=== PATIENT | female | born 1985 | race Caucasian/White ===

== ENCOUNTER → 2017-04-02 | Outpatient (CLI) | payer OTHER ==
--- NOTE | 2017-04-05 16:19 | BMR ---
EXAMINATION TYPE: MR breast BILAT wo/w con DATE OF EXAM: 04/02/2017 COMPARISON: NONE HISTORY: Family hx breast ca, mother TECHNIQUE: A series of fat and water weighted images in the long and short axis views of both breasts are obtained in conjunction with dynamic contrast MRI with subtraction technique. The patient was i njected with 7 mL intravenous Gadavist gadolinium contrast. Three-dimensional and additional postpr ocessing imaging is created on independent workstation and reviewed during official interpretation of this study. COMPARISON: No prior examinations. FINDINGS: There is minimal symmetric background parenchymal enhancement in breasts that are composed of heterog enous fibroglandular tissue. No suspicious areas of mass or nonmass enhancement are seen. No internal mammary, intramammary, or ax illary lymphadenopathy is appreciated. IMPRESSION: BI-RADS 1 - No MR evidence of malignancy. Annual high-risk screening MRI could be performed in this p atient with a family history of breast cancer. Additionally mammography is recommended beginning at t he age of 40 or sooner if clinically indicated.
== END | disposition home or self-care (01) ==
LOC: RADMRIMAIN 07:06
PROVIDERS: ATTEND Family Medicine
DX: Z09 Encounter for follow-up examination after completed treatment for conditions other than malignant neoplasm (principal); Z80.3 Family history of malignant neoplasm of breast
CPT/HCPCS: 0159T; C8908; A9581; 77059

== ENCOUNTER → 2017-05-07 | Outpatient (CLI) | payer OTHER ==
--- NOTE | 2017-05-10 09:08 | MM ---
Reason for exam: screening (asymptomatic). Baseline mammogram. History: Family history of breast cancer in mother at age 53. Physical Findings: Nurse Summary: Nodule in the left breast at 3 o'clock at nipple (nurse kp). MG Screening Mammo w CAD Bilateral CC and MLO view(s) were taken. There are scattered fibroglandular densities. Some nodular asymmetry is present laterally at a middle depth in the left breast, likely nodular breast tissue. Otherwise, no discrete abnormalities seen. Palpable marker is present along the lower outer quadrant periareolar region. These results were verbally communicated with the patient and result sheet given to the patient on 05/07/17. ASSESSMENT: Incomplete: need additional imaging evaluation, BI-RAD 0 RECOMMENDATION: Ultrasound of the left breast. (12-6 o'clock)including palpable.
--- NOTE | 2017-05-10 09:14 | USB ---
Reason for exam: clinical finding. History: Family history of breast cancer in mother at age 53. US Breast Workup Limited LT Left Breast ultrasound demonstrates no cystic or solid lesion seen. Nothing seen at BB. 12-6 o'clock was scanned. These results were verbally communicated with the patient and result sheet given to the patient on 05/07/17. ASSESSMENT: Negative, BI-RAD 1 RECOMMENDATION: Routine screening mammogram of both breasts at age 39. (Unless clinical indication to start sooner). Manage patient on a clinical basis. (Any suspicious palpable abnormalities).
== END | disposition home or self-care (01) ==
LOC: RADMAMWWP 14:46
PROVIDERS: ATTEND Family Medicine
DX: R92.8 Other abnormal and inconclusive findings on diagnostic imaging of breast (principal); Z80.3 Family history of malignant neoplasm of breast
CPT/HCPCS: 76642; G0202

== ENCOUNTER 2017-10-11 18:47 | Emergency (ER) | payer OTHER ==
[2017-10-11 18:55] VITALS: BP 132/93; PULSE 114; RESP 18; TEMP 98.1
--- NOTE | 2017-10-11 19:44 | ED ---
General Adult HPI - General Chief complaint: Extremity Problem,Nontraumatic Stated complaint: left leg swelling Time Seen by Provider: 10/11/17 19:14 Source: patient, RN notes reviewed Mode of arrival: ambulatory Limitations: no limitations - History of Present Illness Initial comments: Patient 32-year-old female presented to the emergency room today with a chief complaint of increased pain and redness to the left lower extremity. She doesn' t that she has chronic swelling to the lower extremity. She states that she's noticed increased redness and pain just over the last few days. Patient states redness was swallows or has increased today up the anterior irwin. She denies any injury or trauma. Denies any other complaints or symptoms. Patient denies any recent fever, chills, shortness of breath, chest pain, back pain, abdominal pain, nausea or vomiting, numbness or tingling, headaches or visual changes, or any other complaints. - Related Data Home Medications Medication Instructions Recorded Confirmed Albuterol Inhaler [Ventolin 2 puff INHALATION RT-Q6H PRN 02/12/15 10/11/17 Inhaler] Desvenlafaxine Succinate [Pristiq 50 mg PO HS PRN 10/11/17 10/11/17 ER] SUMAtriptan SUCCINATE [Imitrex] 50 mg PO DAILY PRN 10/11/17 10/11/17 Previous Rx's Medication Instructions Recorded Cephalexin [Keflex] 500 mg PO Q12HR 10 Days cap 10/11/17 Allergies Allergy/AdvReac Type Severity Reaction Status Date / Time Penicillins Allergy Swelling Verified 10/11/17 19:32 Review of Systems ROS Statement: Those systems with pertinent positive or pertinent negative responses have been documented in the HPI. ROS Other: All systems not noted in ROS Statement are negative. Past Medical History Past Medical History: Asthma, Neurologic Disorder History of Any Multi-Drug Resistant Organisms: None Reported Past Surgical History: No Surgical Hx Reported Past Psychological History: Anxiety Smoking Status: Current every day smoker Past Alcohol Use History: Rare Past Drug Use History: None Reported General Exam - General Exam Comments Initial Comments: General: The patient is awake and alert, in no distress, and does not appear acutely ill. Neck: The neck is supple, there is no tenderness or JVD. Cardiovascular: There is a regular rate and rhythm. No murmur, rub or gallop is appreciated. Respiratory: Lungs are clear to auscultation, respirations are non-labored, breath sounds are equal. No wheezes, stridor, rales, or rhonchi. Musculoskeletal/skin: Patient does have mild swelling to left lower extremity when compared to the right. There is redness erythema going up the anterior left irwin approximately [address] There is tenderness on exam to the anterior aspect also to the posterior aspect on palpation. Her sensations are intact. Pulses 2+. Strength 5/5. Neurological: A&O x 3. CN II-XII intact, There are no obvious motor or sensory deficits. Coordination appears grossly intact. Speech is normal.. Psychiatric: Normal mood and affect. Limitations: no limitations Course Vital Signs 10/11/17 18:52 Temperature 98.1 F Pulse Rate 114 H Respiratory 18 Rate Blood Pressure 132/93 O2 Sat by Pulse 97 Oximetry Medical Decision Making - Medical Decision Making Patient's ultrasound negative for any evidence of DVT. Results were discussed with the patient. She'll be treated for cellulitis infection and started on antibiotics. Advised follow-up over the next 2 days to have area rechecked return here to emergency room if symptoms increase or worsen or for new concerns. Disposition Clinical Impression: Cellulitis Disposition: HOME SELF-CARE Condition: Good Instructions: Cellulitis (ED) Additional Instructions: Please use antibiotic as prescribed follow-up the family doctor have area rechecked over the next 2 days. Please return to emergency room if symptoms increase or worsen appropriate concerns as discussed. Prescriptions: Cephalexin [Keflex] 500 mg PO Q12HR 10 Days cap Is patient prescribed a controlled substance at d/c from ED?: No Referrals: Lon Torres DO [Primary Care Provider] - 1-2 days Time of Disposition: 20:53
--- NOTE | 2017-10-11 20:37 | US ---
EXAMINATION TYPE: US venous doppler duplex LE LT DATE OF EXAM: 10/11/2017 7:49 PM COMPARISON: NONE CLINICAL HISTORY: Pain. Left leg pain SIDE PERFORMED: Left TECHNIQUE: The lower extremity deep venous system is examined utilizing real time linear array sonog flo with graded compression, doppler sonography and color-flow sonography. VESSELS IMAGED: External Iliac Vein (EIV) Common Femoral Vein Deep Femoral Vein Greater Saphenous Vein * Femoral Vein Popliteal Vein Small Saphenous Vein * Proximal Calf Veins (* superficial vessels) Left Leg: Negative for DVT Grayscale, color doppler, spectral doppler imaging performed of the deep veins of the left lower extr emity. There is normal flow, compressibility, vascular waveforms. IMPRESSION: No ultrasound evidence for acute DVT in the left lower extremity.
[2017-10-11] MEDS ORDERED: CEPHALEXIN 500MG STARTER PACK 4 CAP BTL PO STA (20:55)
== END 2017-10-11 21:19 | disposition home or self-care (01) ==
LOC: EC 18:47
DX: L03.116 Cellulitis of left lower limb (principal); F17.200 Nicotine dependence, unspecified, uncomplicated; Z88.0 Allergy status to penicillin
CPT/HCPCS: 99283

== ENCOUNTER 2017-10-12 18:16 | Inpatient (IN) | payer OTHER ==
[2017-10-12] MEDS ORDERED: SODIUM CHLORIDE 0.9% 1,000 ML IV STA (19:15)
--- NOTE | 2017-10-12 19:46 | ED ---
General Adult HPI - General Chief complaint: Extremity Problem,Nontraumatic Stated complaint: cellulitis on leg Time Seen by Provider: 10/12/17 19:13 Source: patient, RN notes reviewed Mode of arrival: ambulatory Limitations: no limitations - History of Present Illness Initial comments: Patient 32-year-old female presented to the emergency room today with a chief complaint of infection to the left lower leg. Patient does admit that she was seen yesterday diagnosed with cellulitis. She states she was started on Vioxx. She does not that some family doctor earlier today. She states that pain is not worse there is some increased redness. Patient admits that she feels feverish. She denies any other complaints or symptoms currently. Patient denies any recent fever, chills, shortness of breath, chest pain, back pain, abdominal pain, constipation or diarrhea, headaches or visual changes, or any other complaints. - Related Data Home Medications Medication Instructions Recorded Confirmed Albuterol Inhaler [Ventolin 2 puff INHALATION RT-Q6H PRN 02/12/15 10/12/17 Inhaler] Desvenlafaxine Succinate [Pristiq 50 mg PO HS PRN 10/11/17 10/12/17 ER] SUMAtriptan SUCCINATE [Imitrex] 50 mg PO DAILY PRN 10/11/17 10/12/17 Beclomethasone Dip 80 Mcg/Puff 1 puff INHALATION RT-BID 10/12/17 10/12/17 [Qvar 80 mcg] Previous Rx's Medication Instructions Recorded Cephalexin [Keflex] 500 mg PO Q12HR 10 Days cap 10/11/17 Allergies Allergy/AdvReac Type Severity Reaction Status Date / Time Penicillins Allergy Swelling Verified 10/12/17 19:47 Review of Systems ROS Statement: Those systems with pertinent positive or pertinent negative responses have been documented in the HPI. ROS Other: All systems not noted in ROS Statement are negative. Past Medical History Past Medical History: Asthma, Neurologic Disorder History of Any Multi-Drug Resistant Organisms: None Reported Past Surgical History: No Surgical Hx Reported Past Psychological History: Anxiety Smoking Status: Current every day smoker Past Alcohol Use History: Rare Past Drug Use History: None Reported General Exam - General Exam Comments Initial Comments: General: The patient is awake and alert, in no distress, and does not appear acutely ill. Neck: The neck is supple, there is no tenderness or JVD. Cardiovascular: There is a regular rate and rhythm. No murmur, rub or gallop is appreciated. Respiratory: Lungs are clear to auscultation, respirations are non-labored, breath sounds are equal. No wheezes, stridor, rales, or rhonchi. Musculoskeletal: Patient does have redness and some swelling to the left lower extremity. Redness approximately three fourth[address] way. Pulses 2+. Strength 5 /5. Full range of motion. No Neurological: A&O x 3. CN II-XII intact, There are no obvious motor or sensory deficits. Coordination appears grossly intact. Speech is normal. Skin: Redness to the anterior aspect of left irwin approximately [address]. Psychiatric: Normal mood and affect. Limitations: no limitations Course Vital Signs 10/12/17 19:14 Temperature 98.0 F Pulse Rate 113 H Respiratory 20 Rate Blood Pressure 150/86 O2 Sat by Pulse 100 Oximetry Medical Decision Making - Medical Decision Making Patient's labs been reviewed does show 13,000 white count. Urine culture added to patient's urinalysis. Patient's her on vancomycin here the emergency room. Patient will be admitted for outpatient treatment failure of cellulitis to left lower extremity. - Lab Data Result diagrams: 10/12/17 19:44 10/12/17 19:44 Lab Results 10/12/17 10/12/17 10/12/17 Range/Units 19:32 19:32 19:44 WBC 13.8 H (3.8-10.6) k/uL RBC 4.47 (3.80-5.40) m/uL Hgb 13.6 (11.4-16.0) gm/dL Hct 40.7 (34.0-46.0) % MCV 91.0 (80.0-100.0) fL MCH 30.3 (25.0-35.0) pg MCHC 33.3 (31.0-37.0) g/dL RDW 12.3 (11.5-15.5) % Plt Count 234 (150-450) k/uL Neutrophils % 75 % Lymphocytes % 16 % Monocytes % 7 % Eosinophils % 1 % Basophils % 0 % Neutrophils # 10.4 H (1.3-7.7) k/uL Lymphocytes # 2.2 (1.0-4.8) k/uL Monocytes # 0.9 (0-1.0) k/uL Eosinophils # 0.1 (0-0.7) k/uL Basophils # 0.0 (0-0.2) k/uL Sodium (137-145) mmol/L Potassium (3.5-5.1) mmol/L Chloride (98-107) mmol/L Carbon Dioxide (22-30) mmol/L Anion Gap mmol/L BUN (7-17) mg/dL Creatinine (0.52-1.04) mg/dL Est GFR (CKD-EPI)AfAm (>60 ml/min/1.73 sqM) Est GFR (CKD-EPI)NonAf (>60 ml/min/1.73 sqM) Glucose (74-99) mg/dL Calcium (8.4-10.2) mg/dL Total Bilirubin (0.2-1.3) mg/dL AST (14-36) U/L ALT (9-52) U/L Alkaline Phosphatase (38-126) U/L Total Protein (6.3-8.2) g/dL Albumin (3.5-5.0) g/dL Urine Color Yellow Urine Appearance Cloudy H (Clear) Urine pH 7.0 (5.0-8.0) Ur Specific Chana 1.021 (1.001-1.035) Urine Protein Trace H (Negative) Urine Glucose (UA) Negative (Negative) Urine Ketones Negative (Negative) Urine Blood Negative (Negative) Urine Nitrite Negative (Negative) Urine Bilirubin Negative (Negative) Urine Urobilinogen <2.0 (<2.0) mg/dL Ur Leukocyte Esterase Moderate H (Negative) Urine WBC 26 H (0-5) /hpf Ur Squamous Epith Cells 8 H (0-4) /hpf Amorphous Sediment Few H (None) /hpf Urine HCG, Qual Not Detected (Not Detectd) 10/12/17 Range/Units 19:44 WBC (3.8-10.6) k/uL RBC (3.80-5.40) m/uL Hgb (11.4-16.0) gm/dL Hct (34.0-46.0) % MCV (80.0-100.0) fL MCH (25.0-35.0) pg MCHC (31.0-37.0) g/dL RDW (11.5-15.5) % Plt Count (150-450) k/uL Neutrophils % % Lymphocytes % % Monocytes % % Eosinophils % % Basophils % % Neutrophils # (1.3-7.7) k/uL Lymphocytes # (1.0-4.8) k/uL Monocytes # (0-1.0) k/uL Eosinophils # (0-0.7) k/uL Basophils # (0-0.2) k/uL Sodium 143 (137-145) mmol/L Potassium 5.0 (3.5-5.1) mmol/L Chloride 104 (98-107) mmol/L Carbon Dioxide 27 (22-30) mmol/L Anion Gap 12 mmol/L BUN 12 (7-17) mg/dL Creatinine 0.60 (0.52-1.04) mg/dL Est GFR (CKD-EPI)AfAm >90 (>60 ml/min/1.73 sqM) Est GFR (CKD-EPI)NonAf >90 (>60 ml/min/1.73 sqM) Glucose 115 H (74-99) mg/dL Calcium 9.8 (8.4-10.2) mg/dL Total Bilirubin 0.3 (0.2-1.3) mg/dL AST 18 (14-36) U/L ALT 18 (9-52) U/L Alkaline Phosphatase 77 (38-126) U/L Total Protein 7.1 (6.3-8.2) g/dL Albumin 4.5 (3.5-5.0) g/dL Urine Color Urine Appearance (Clear) Urine pH (5.0-8.0) Ur Specific Chana (1.001-1.035) Urine Protein (Negative) Urine Glucose (UA) (Negative) Urine Ketones (Negative) Urine Blood (Negative) Urine Nitrite (Negative) Urine Bilirubin (Negative) Urine Urobilinogen (<2.0) mg/dL Ur Leukocyte Esterase (Negative) Urine WBC (0-5) /hpf Ur Squamous Epith Cells (0-4) /hpf Amorphous Sediment (None) /hpf Urine HCG, Qual (Not Detectd) Disposition Clinical Impression: Cellulitis Disposition: ADMITTED IP TO THIS HOSP Condition: Good Is patient prescribed a controlled substance at d/c from ED?: No Referrals: Lon Torres DO [Primary Care Provider] - 1-2 days Time of Disposition: 20:17
[2017-10-12 19:51] LABS: Amorphous Sediment,Urine Few /hpf; Appearance,Urine Cloudy (Clear); Bilirubin,Urine Negative (Negative); Blood,Urine Negative (Negative); Color,Urine Yellow; Glucose,Urine (UA) Negative (Negative); Ketones,Urine Negative (Negative); Leukocyte Esterase,Urine Moderate (Negative); Nitrite,Urine Negative (Negative); Protein,Urine Trace (Negative); Specific Gravity,Urine 1.021 (1.001-1.035); Squamous Epithelial Cell,Urine 8 /hpf (0-4); Urobilinogen,Urine <2.0 mg/dL (<2.0); WBC,Urine 26 /hpf (0-5)
[2017-10-12 19:54] LABS: Basophils % (A) 0 %; Eosinophils # (A) 0.1 k/uL (0-0.7); Eosinophils % (A) 1 %; HCT 40.7 % (34.0-46.0); HGB 13.6 gm/dL (11.4-16.0); Lymphocytes # (A) 2.2 k/uL (1.0-4.8); Lymphocytes % (A) 16 %; MCH 30.3 pg (25.0-35.0); MCHC 33.3 g/dL (31.0-37.0); Mean Platelet Volume 7.4; Monocytes # (A) 0.9 k/uL (0-1.0); Monocytes % (A) 7 %; Neutrophils # (A) 10.4 k/uL (1.3-7.7); Neutrophils % (A) 75 %; Platelet Count 234 k/uL (150-450); RBC 4.47 m/uL (3.80-5.40); RDW 12.3 % (11.5-15.5); WBC 13.8 k/uL (3.8-10.6)
[2017-10-12] MEDS ORDERED: MORPHINE SULFATE 4 MG/ML SYRINGE IVP STA (19:55)
[2017-10-12] MEDS ORDERED: VANCOMYCIN IV PER PHARMACY 1 EACH MISC MISCELLANE PRN (19:55)
[2017-10-12] MEDS ORDERED: VANCOMYCIN 1,250 MG in SODIUM CHLORIDE 0.9% 250 ML IVPB STA (19:59)
[2017-10-12 20:04] LABS: ALT 18 U/L (9-52); AST 18 U/L (14-36); Albumin 4.5 g/dL (3.5-5.0); Alkaline Phosphatase 77 U/L (38-126); Anion Gap 12 mmol/L; Blood Urea Nitrogen 12 mg/dL (7-17); Calcium 9.8 mg/dL (8.4-10.2); Carbon Dioxide 27 mmol/L (22-30); Chloride 104 mmol/L (98-107); Glucose 115 mg/dL (74-99); Sodium 143 mmol/L (137-145); Total Bilirubin 0.3 mg/dL (0.2-1.3); Total Protein 7.1 g/dL (6.3-8.2)
[2017-10-12] MEDS ORDERED: NALOXONE 0.4 MG/ML 1 ML VIAL IV PRN (20:17)
[2017-10-12] MEDS ORDERED: IBUPROFEN 600 MG TAB PO PRN (20:17)
[2017-10-12] MEDS ORDERED: MORPHINE SULFATE 4 MG/ML SYRINGE IV PRN (20:17)
[2017-10-12] MEDS ORDERED: ACETAMINOPHEN TAB 325 MG TAB PO PRN (20:17)
[2017-10-12] MEDS ORDERED: ONDANSETRON 4 MG/2 ML VIAL IVP PRN (20:17)
[2017-10-12] MEDS ORDERED: diphenhydrAMINE 50 MG/ML 1 ML VIAL IVP STA (20:42)
[2017-10-12] MEDS: KETOROLAC 30 MG/ML 1 ML VIAL IVP PRN (21:26)
[2017-10-12 21:43] VITALS: BMI 25.0
[2017-10-12] MEDS ORDERED: SUMAtriptan SUCCINATE 50 MG TAB PO PRN (22:44)
[2017-10-12] MEDS: diphenhydrAMINE 25 MG CAP PO PRN (22:49)
[2017-10-12] MEDS: SODIUM CHLORIDE 0.9% 1,000 ML IV STA (22:50)
[2017-10-13] MEDS: diphenhydrAMINE 25 MG CAP PO PRN ×3 (03:31→23:55)
[2017-10-13] MEDS ORDERED: VANCOMYCIN 1,250 MG in SODIUM CHLORIDE 0.9% 250 ML IVPB SCH (04:00)
[2017-10-13] MEDS: KETOROLAC 30 MG/ML 1 ML VIAL IVP PRN ×3 (06:02→21:38)
[2017-10-13 07:16] LABS: Basophils % (A) 0 %; Eosinophils # (A) 0.2 k/uL (0-0.7); Eosinophils % (A) 1 %; HCT 37.2 % (34.0-46.0); HGB 12.2 gm/dL (11.4-16.0); Lymphocytes # (A) 2.2 k/uL (1.0-4.8); Lymphocytes % (A) 20 %; MCH 30.5 pg (25.0-35.0); MCHC 32.8 g/dL (31.0-37.0); Mean Platelet Volume 7.5; Monocytes # (A) 0.6 k/uL (0-1.0); Monocytes % (A) 6 %; Neutrophils % (A) 72 %; Platelet Count 198 k/uL (150-450); RDW 12.3 % (11.5-15.5); WBC 11.1 k/uL (3.8-10.6)
[2017-10-13 07:47] LABS: ALT 18 U/L (9-52); AST 15 U/L (14-36); Albumin 3.4 g/dL (3.5-5.0); Alkaline Phosphatase 73 U/L (38-126); Anion Gap 9 mmol/L; Blood Urea Nitrogen 10 mg/dL (7-17); Calcium 8.6 mg/dL (8.4-10.2); Carbon Dioxide 25 mmol/L (22-30); Chloride 106 mmol/L (98-107); Glucose 113 mg/dL (74-99); Potassium 4.4 mmol/L (3.5-5.1); Sodium 140 mmol/L (137-145); Total Bilirubin 0.4 mg/dL (0.2-1.3); Total Protein 5.6 g/dL (6.3-8.2)
[2017-10-13] MEDS: BUDESONIDE 0.5 MG/2 ML NEBU INHALATION SCH ×2 (07:55→19:15)
[2017-10-13] MEDS: ceFAZolin 1,000 MG in DEXTROSE/WATER 1 50ML.BAG IVPB SCH ×3 (07:56→23:51)
[2017-10-13] MEDS ORDERED: MORPHINE ORAL SOLN 10 MG/5 ML CUP PO PRN (08:22)
[2017-10-13] MEDS: SODIUM CHLORIDE 0.9% 1,000 ML IV STA ×2 (09:26→21:40)
[2017-10-13] MEDS: ALBUTEROL NEBULIZED 2.5 MG/3 ML INHALATION PRN ×2 (13:47→19:15)
[2017-10-13] MEDS: DESVENLAFAXINE SUCCINATE 50 MG TAB.ER.24H PO PRN (21:41)
--- NOTE | 2017-10-13 23:17 | P.HPIM ---
History of Present Illness H&P Date: 10/13/17 Chief Complaint: Left lower activity redness and swelling Patient patient is a 32-year-old female with a known history of asthma presented to the emergency room today with a chief complaint of infection to the left lower leg. Patient does admit that she was seen yesterday diagnosed with cellulitis. She states she was started on Vioxx. She does not that some family doctor earlier today. She states that pain is not worse there is some increased redness. Patient admits that she feels feverish. She denies any other complaints or symptoms currently. Patient denies any recent fever, chills , shortness of breath, chest pain, back pain, abdominal pain, constipation or diarrhea, headaches or visual changes, or any other complaints. Patient does have previous history of left lower extremity cellulitis. Does have a history of eczema of the feet and was following dermatologists in the past. Patient was initially started on vancomycin and patient developed headache and feeling of flushing of the face. Vancomycin has been discontinued and patient was started on Keflex IV. No history of MRSA in the past. Patient was also found have acute urinary tract infection. Review of Systems Constitutional: Patient denies any fever or chills . No generalized weakness or weight loss. Abdomen: Patient denied nausea vomiting and diarrhea and abdominal pain. Cardiovascular: Patient denies any chest pain or short of breath no palpitations. Respiratory: patient denied any cough is from production. No shortness of breath Neurologic: Patient denied any numbness or tingling headache. Musculoskeletal: Left lower activity redness and swelling. Patient denies any complaints of joint swelling or deformity. Skin: Negative Psychiatric: Negative Endocrine: No heat or cold intolerance. No recent weight gain. Genitourinary: No dysuria or hematuria. All other 14 point ROS negative except the above Past Medical History Past Medical History: Asthma, Neurologic Disorder Additional Past Medical History / Comment(s): pt states she has " white matter on the brain and white stuff on spinal cord possible ms." History of Any Multi-Drug Resistant Organisms: None Reported Past Surgical History: No Surgical Hx Reported Past Psychological History: Anxiety Smoking Status: Current every day smoker Past Alcohol Use History: Rare Past Drug Use History: None Reported - Past Family History Mother Family Medical History: Cancer Additional Family Medical History / Comment(s): breast cancer Father History Unknown: Yes Family Medical History: Coronary Artery Disease (CAD), Hypertension Medications and Allergies Home Medications Medication Instructions Recorded Confirmed Type Albuterol Inhaler [Ventolin 2 puff INHALATION RT-Q6H PRN 02/12/15 10/12/17 History Inhaler] Cephalexin [Keflex] 500 mg PO Q12HR 10 Days cap 10/11/17 10/12/17 Rx Desvenlafaxine Succinate [Pristiq 50 mg PO HS PRN 10/11/17 10/12/17 History ER] SUMAtriptan SUCCINATE [Imitrex] 50 mg PO DAILY PRN 10/11/17 10/12/17 History Beclomethasone Dip 80 Mcg/Puff 1 puff INHALATION RT-BID 10/12/17 10/12/17 History [Qvar 80 mcg] Allergies Allergy/AdvReac Type Severity Reaction Status Date / Time Penicillins Allergy Swelling Verified 10/12/17 19:47 vancomycin AdvReac Itching Verified 10/13/17 08:14 Physical Exam Vitals: Vital Signs Temp Pulse Pulse Resp BP BP Pulse Ox 10/13/17 08:08 97.9 F 75 16 94/57 95 10/13/17 00:20 98.2 F 81 18 115/75 100 10/12/17 21:22 98.3 F 86 18 135/72 100 10/12/17 21:05 98.7 F 86 18 115/78 99 10/12/17 20:19 91 18 124/75 100 10/12/17 19:14 98.0 F 113 H 20 150/86 100 Intake and Output 10/12/17 10/13/17 10/13/17 22:59 06:59 14:59 Intake Total 600 Balance 600 Intake: Oral 600 Other: Voiding Method Toilet # Voids 1 1 Weight 72.575 kg PHYSICAL EXAMINATION: Patient is lying in the bed comfortably, no acute distress, awake alert and oriented.. HEENT: Normocephalic. Neck is supple. Pupils reactive. Nostrils clear. Oral cavity is moist. Ears reveal no drainage. Neck reveals no JVD, carotid bruits, or thyromegaly. CHEST EXAMINATION: Trachea is central. Symmetrical expansion. Lung morris clear to auscultation and percussion. CARDIAC: Normal S1, S2 with no gallops. No murmurs ABDOMEN: Soft. Bowel sounds normal. No organomegaly. No abdominal bruits. Extremities: Left lower activity swelling up to below knee and redness and tenderness. No clubbing or cyanosis Neurologically awake, alert, oriented x3 with well-coordinated movements. No focal deficits noted Skin: No rash or skin lesions. Psychiatric: Coperative. Nonsuicidal Musculoskeletal: No joint swelling or deformity. Normal range of motion. Results CBC & Chem 7: 10/13/17 06:56 10/13/17 06:56 Labs: Abnormal Lab Results - Last 24 Hours (Table) 10/12/17 10/12/17 10/12/17 Range/Units 19:32 19:44 19:44 WBC 13.8 H (3.8-10.6) k/uL Neutrophils # 10.4 H (1.3-7.7) k/uL Glucose 115 H (74-99) mg/dL Total Protein (6.3-8.2) g/dL Albumin (3.5-5.0) g/dL Urine Appearance Cloudy H (Clear) Urine Protein Trace H (Negative) Ur Leukocyte Esterase Moderate H (Negative) Urine WBC 26 H (0-5) /hpf Ur Squamous Epith Cells 8 H (0-4) /hpf Amorphous Sediment Few H (None) /hpf 10/13/17 10/13/17 Range/Units 06:56 06:56 WBC 11.1 H (3.8-10.6) k/uL Neutrophils # 8.0 H (1.3-7.7) k/uL Glucose 113 H (74-99) mg/dL Total Protein 5.6 L (6.3-8.2) g/dL Albumin 3.4 L (3.5-5.0) g/dL Urine Appearance (Clear) Urine Protein (Negative) Ur Leukocyte Esterase (Negative) Urine WBC (0-5) /hpf Ur Squamous Epith Cells (0-4) /hpf Amorphous Sediment (None) /hpf Microbiology - Last 24 Hours (Table) 10/12/17 20:20 Urine Culture - Preliminary Urine,Voided Thrombosis Risk Factor Assmnt - DVT/VTE Prophylaxis DVT/VTE Prophylaxis: Pharmacologic Prophylaxis ordered - Choose All That Apply Each Factor Represents 1 point: Obesity (BMI >25) Other Risk Factors: No Other congenital or acquired thrombophilia - If yes, enter type in comment: No Thrombosis Risk Factor Assessment Total Risk Factor Score: 1 Thrombosis Risk Factor Assessment Level: Low Risk Assessment and Plan Assessment: Sepsis secondary to left lower extremity cellulitis Acute urinary tract infection Eczema of bilateral feet. Asthma stable DVT prophylaxis Plan: Patient will be continued on Keflex IV. Vancomycin has been discontinued due to side effects. Follow up blood cultures and urine culture and further recommendations based on the clinical course. We will continue the home medications and breathing treatments. Pain management. Time with Patient: Greater than 30
[2017-10-14] MEDS: HEPARIN SODIUM,PORCINE 5,000 UNIT/ML 1 ML VIAL SQ SCH ×3 (02:32→17:36)
[2017-10-14] MEDS: KETOROLAC 30 MG/ML 1 ML VIAL IVP PRN ×3 (05:28→20:29)
[2017-10-14] MEDS: ALBUTEROL NEBULIZED 2.5 MG/3 ML INHALATION PRN ×2 (05:30→23:16)
[2017-10-14] MEDS: ceFAZolin 1,000 MG in DEXTROSE/WATER 1 50ML.BAG IVPB SCH ×2 (08:58→17:35)
[2017-10-14] MEDS: BUDESONIDE 0.5 MG/2 ML NEBU INHALATION SCH ×2 (09:05→20:34)
[2017-10-14 10:16] LABS: Anion Gap 8 mmol/L; Blood Urea Nitrogen 8 mg/dL (7-17); Calcium 9.4 mg/dL (8.4-10.2); Carbon Dioxide 27 mmol/L (22-30); Chloride 107 mmol/L (98-107); Glucose 87 mg/dL (74-99); Potassium 4.8 mmol/L (3.5-5.1); Sodium 142 mmol/L (137-145)
[2017-10-14 10:27] LABS: HCT 36.2 % (34.0-46.0); MCH 30.7 pg (25.0-35.0); MCHC 33.1 g/dL (31.0-37.0); MCV 92.6 fL (80.0-100.0); Mean Platelet Volume 6.8; Platelet Count 190 k/uL (150-450); RDW 12.1 % (11.5-15.5); WBC 9.5 k/uL (3.8-10.6)
[2017-10-14 11:04] LABS: Eosinophils # (M) 0.29 k/uL (0-0.7); Lymphocytes # (M) 1.43 k/uL (1.0-4.8); Monocytes # (M) 0.48 k/uL (0-1.0); Neutrophils # (M) 7.32 k/uL (1.3-7.7); Neutrophils % (M) 77 %; Nucleated Red Blood Cells 0 /100 WBC (0-0); Total Cells Counted 100
[2017-10-14] MEDS: HYDROcodone/APAP 5-325MG 1 EACH TAB PO PRN (17:47)
[2017-10-14] MEDS: DESVENLAFAXINE SUCCINATE 50 MG TAB.ER.24H PO PRN (20:30)
[2017-10-15] MEDS: ceFAZolin 1,000 MG in DEXTROSE/WATER 1 50ML.BAG IVPB SCH ×3 (00:16→15:11)
[2017-10-15] MEDS: HEPARIN SODIUM,PORCINE 5,000 UNIT/ML 1 ML VIAL SQ SCH ×2 (00:16→08:41)
[2017-10-15] MEDS: HYDROcodone/APAP 5-325MG 1 EACH TAB PO PRN ×2 (00:27→08:49)
[2017-10-15] MEDS: diphenhydrAMINE 25 MG CAP PO PRN ×3 (00:27→13:05)
--- NOTE | 2017-10-15 00:41 | P.PN ---
Subjective Progress Note Date: 10/15/17 Principal diagnosis: Left lower extremity cellulitis Patient patient is a 32-year-old female with a known history of asthma presented to the emergency room today with a chief complaint of infection to the left lower leg. Patient does admit that she was seen yesterday diagnosed with cellulitis. She states she was started on Vioxx. She does not that some family doctor earlier today. She states that pain is not worse there is some increased redness. Patient admits that she feels feverish. She denies any other complaints or symptoms currently. Patient denies any recent fever, chills , shortness of breath, chest pain, back pain, abdominal pain, constipation or diarrhea, headaches or visual changes, or any other complaints. Patient does have previous history of left lower extremity cellulitis. Does have a history of eczema of the feet and was following dermatologists in the past. Patient was initially started on vancomycin and patient developed headache and feeling of flushing of the face. Vancomycin has been discontinued and patient was started on Keflex IV. No history of MRSA in the past. Patient was also found have acute urinary tract infection. 10/14/2017 Left leg swelling and redness slightly improved. Otherwise patient still having slight pain. Overall clinically improving. Urine culture showed no growth. Patient is being continued on antibiotics in the form of Keflex IV. No fever no chills. No acute overnight issues. All other review of systems negative except the above Current medications reviewed Objective - Vital Signs Vital signs: Vital Signs Temp 97.9 F 10/14/17 19:17 Pulse 74 10/14/17 23:25 Resp 16 10/14/17 19:17 BP 112/65 10/14/17 19:17 Pulse Ox 95 10/14/17 19:17 Intake & Output 10/14/17 10/14/17 10/15/17 06:59 18:59 06:59 Other: # Voids 1 1 # Bowel Movements 1 - Exam PHYSICAL EXAMINATION: Patient is lying in the bed comfortably, no acute distress, awake alert and oriented.. HEENT: Normocephalic. Neck is supple. Pupils reactive. Nostrils clear. Oral cavity is moist. Ears reveal no drainage. Neck reveals no JVD, carotid bruits, or thyromegaly. CHEST EXAMINATION: Trachea is central. Symmetrical expansion. Lung morris clear to auscultation and percussion. CARDIAC: Normal S1, S2 with no gallops. No murmurs ABDOMEN: Soft. Bowel sounds normal. No organomegaly. No abdominal bruits. Extremities: reveal no edema. No clubbing or cyanosis. Left lower extremity redness around the irwin area. Minimal swelling and tender Neurologically awake, alert, oriented x3 with well-coordinated movements. No focal deficits noted Skin: No rash or skin lesions. Psychiatric: Coperative. Nonsuicidal Musculoskeletal: No joint swelling or deformity. Normal range of motion. - Labs CBC & Chem 7: 10/14/17 08:58 10/14/17 08:58 Labs: Microbiology - Last 24 Hours (Table) 10/12/17 19:44 Blood Culture - Preliminary Blood No Growth after 48 hours 10/12/17 20:20 Urine Culture - Final Urine,Voided Assessment and Plan Assessment: Sepsis secondary to left lower extremity cellulitis Acute urinary tract infection. Urine culture showed no growth Eczema of bilateral feet. Asthma stable DVT prophylaxis Plan: Patient will be continued on Keflex IV. Vancomycin has been discontinued due to side effects. Follow up blood cultures and urine culture and further recommendations based on the clinical course. We will continue the home medications and breathing treatments. Pain management. Time with Patient: Greater than 30
[2017-10-15 03:12] VITALS: RESP 18
[2017-10-15] MEDS: KETOROLAC 30 MG/ML 1 ML VIAL IVP PRN ×2 (06:57→13:01)
[2017-10-15] MEDS: BUDESONIDE 0.5 MG/2 ML NEBU INHALATION SCH ×2 (07:21→10:59)
[2017-10-15 11:56] VITALS: BP 114/72; PULSE 83; TEMP 98.4
--- NOTE | 2017-10-17 23:51 | P.DS ---
Providers Date of admission: 10/12/17 20:16 Expected date of discharge: 10/15/17 Attending physician: Evgeny Cabrera Primary care physician: Lon Brian [facility] Course: Discharge diagnosis Sepsis secondary to left lower extremity cellulitis Acute urinary tract infection. Urine culture showed no growth Eczema of bilateral feet. Asthma stable DVT prophylaxis Hospital course Patient patient is a 32-year-old female with a known history of asthma presented to the emergency room today with a chief complaint of infection to the left lower leg. Patient does admit that she was seen yesterday diagnosed with cellulitis. She states she was started on Vioxx. She does not that some family doctor earlier today. She states that pain is not worse there is some increased redness. Patient admits that she feels feverish. She denies any other complaints or symptoms currently. Patient denies any recent fever, chills , shortness of breath, chest pain, back pain, abdominal pain, constipation or diarrhea, headaches or visual changes, or any other complaints. Patient does have previous history of left lower extremity cellulitis. Does have a history of eczema of the feet and was following dermatologists in the past. Patient was initially started on vancomycin and patient developed headache and feeling of flushing of the face. Vancomycin has been discontinued and patient was started on Keflex IV. No history of MRSA in the past. Patient was also found have acute urinary tract infection. 10/14/2017 Left leg swelling and redness slightly improved. Otherwise patient still having slight pain. Overall clinically improving. Urine culture showed no growth. Patient is being continued on antibiotics in the form of Keflex IV. No fever no chills. No acute overnight issues. Patient was continued on Keflex IV. Vancomycin has been discontinued due to side effects. Blood cultures and urine cultures have been negative. Leg swelling is much improved now and redness is almost resolved. Patient will be discharged home with oral antibiotics in the form of Keflex. Stable to be discharged today. Discharge physical examination was done and vitals reviewed Patient Condition at Discharge: Good Plan - Discharge Summary New Discharge Prescriptions: Continue Albuterol Inhaler [Ventolin Hfa Inhaler] 2 puff INHALATION RT-Q6H PRN PRN Reason: Shortness Of Breath SUMAtriptan SUCCINATE [Imitrex] 50 mg PO DAILY PRN PRN Reason: Migraine Headache Desvenlafaxine Succinate [Pristiq ER] 50 mg PO HS PRN PRN Reason: Anxiety Beclomethasone Dip 80 Mcg/Puff [Qvar 80 mcg] 1 puff INHALATION RT-BID Changed Cephalexin [Keflex] 500 mg PO Q8H 7 Days #21 cap Discharge Medication List Albuterol Inhaler [Ventolin Hfa Inhaler] 2 puff INHALATION RT-Q6H PRN 02/12/15 [ History] Desvenlafaxine Succinate [Pristiq ER] 50 mg PO HS PRN 10/11/17 [History] SUMAtriptan SUCCINATE [Imitrex] 50 mg PO DAILY PRN 10/11/17 [History] Beclomethasone Dip 80 Mcg/Puff [Qvar 80 mcg] 1 puff INHALATION RT-BID 10/12/17 [ History] Cephalexin [Keflex] 500 mg PO Q8H 7 Days #21 cap 10/15/17 [Rx] Follow up Appointment(s)/Referral(s): Lon Torres DO [Primary Care Provider] - 10/19/17 9:30 am (You have an appointment with [facility], Ha[facility] Estes) Patient Instructions/Handouts: Cellulitis (GEN) Activity/Diet/Wound Care/Special Instructions: You may take benadryl 25 mg every 6 hours as needed for itching. You may take tylenol 650 mg to 1000 mg every 6 hours as needed for pain. You may take ibuprofen (Advil, Motrin, or store brand) 400 mg to 600 mg every 6 hours as needed for pain. Call Dr. Torres if you develop a fever, increase in redness in your leg, if you have any drainage. Call Dr. Torres if you have any other questions or concerns. Discharge Disposition: HOME SELF-CARE
== END 2017-10-15 16:07 | disposition home or self-care (01) | DRG 872 ==
LOC: EC 18:16 → 6PED 20:16
PROVIDERS: ADMIT Hospitalist; ATTEND Hospitalist
DX: A41.9 Sepsis, unspecified organism (principal); L03.116 Cellulitis of left lower limb; N39.0 Urinary tract infection, site not specified; F17.200 Nicotine dependence, unspecified, uncomplicated; F41.9 Anxiety disorder, unspecified; J45.909 Unspecified asthma, uncomplicated; L30.9 Dermatitis, unspecified; Z79.899 Other long term (current) drug therapy; Z88.0 Allergy status to penicillin; Z80.3 Family history of malignant neoplasm of breast; Z82.49 Family history of ischemic heart disease and other diseases of the circulatory system
CPT/HCPCS: 36415; 80048; 80053; 81001; 81025; 85025; 87040; 87086; 94640; 96361; 96365; 96375; 99285

== ENCOUNTER 2017-10-17 13:46 | Inpatient (IN) | payer OTHER ==
--- NOTE | 2017-10-17 14:10 | ED ---
General Adult HPI - General Chief complaint: Skin/Abscess/Foreign Body Stated complaint: Recheck Cellulitis Time Seen by Provider: 10/17/17 14:07 Source: patient, RN notes reviewed, old records reviewed Mode of arrival: ambulatory Limitations: no limitations - History of Present Illness Initial comments: This is a 32-year-old female the ER for evaluation of left lower extremity cellulitis. Patient recent hospital admission inpatient admission for similar. Patient denies any recent significant change in symptoms. Patient states she felt better when she went home woke up today with severe left irwin pain edema erythema and swelling. Patient denies any fevers. No new medications - Related Data Home Medications Medication Instructions Recorded Confirmed Albuterol Inhaler [Ventolin Hfa 2 puff INHALATION RT-Q6H PRN 02/12/15 10/17/17 Inhaler] Desvenlafaxine Succinate [Pristiq 50 mg PO HS PRN 10/11/17 10/17/17 ER] SUMAtriptan SUCCINATE [Imitrex] 50 mg PO DAILY PRN 10/11/17 10/17/17 Beclomethasone Dip 80 Mcg/Puff 1 puff INHALATION RT-BID 10/12/17 10/17/17 [Qvar 80 mcg] Previous Rx's Medication Instructions Recorded Cephalexin [Keflex] 500 mg PO Q8H 7 Days #21 cap 10/15/17 Allergies Allergy/AdvReac Type Severity Reaction Status Date / Time Penicillins Allergy Swelling Verified 10/17/17 15:34 vancomycin AdvReac Itching Verified 10/17/17 15:34 Review of Systems ROS Statement: Those systems with pertinent positive or pertinent negative responses have been documented in the HPI. ROS Other: All systems not noted in ROS Statement are negative. Past Medical History Past Medical History: Asthma, Neurologic Disorder Additional Past Medical History / Comment(s): pt states she has " white matter on the brain and white stuff on spinal cord possible ms." History of Any Multi-Drug Resistant Organisms: None Reported Past Surgical History: No Surgical Hx Reported Past Psychological History: Anxiety Smoking Status: Current every day smoker Past Alcohol Use History: Rare Past Drug Use History: None Reported - Past Family History Mother Family Medical History: Cancer Additional Family Medical History / Comment(s): breast cancer Father History Unknown: Yes Family Medical History: Coronary Artery Disease (CAD), Hypertension General Exam Limitations: no limitations General appearance: alert, in no apparent distress Head exam: Present: atraumatic, normocephalic, normal inspection Eye exam: Present: normal appearance, PERRL, EOMI. Absent: scleral icterus, conjunctival injection, periorbital swelling ENT exam: Present: normal exam, mucous membranes moist Neck exam: Present: normal inspection. Absent: tenderness, meningismus, lymphadenopathy Respiratory exam: Present: normal lung sounds bilaterally. Absent: respiratory distress, wheezes, rales, rhonchi, stridor Cardiovascular Exam: Present: regular rate, normal rhythm, normal heart sounds. Absent: systolic murmur, diastolic murmur, rubs, gallop, clicks GI/Abdominal exam: Present: soft, normal bowel sounds. Absent: distended, tenderness, guarding, rebound, rigid Extremities exam: Present: normal inspection, full ROM, normal capillary refill , other (Significant left anterior irwin tenderness erythema and edema, surrounding warmth). Absent: tenderness, pedal edema, joint swelling, calf tenderness Back exam: Present: normal inspection Neurological exam: Present: alert, oriented X3, CN II-XII intact Psychiatric exam: Present: normal affect, normal mood Skin exam: Present: warm, dry, intact, normal color. Absent: rash Course Vital Signs 10/17/17 10/17/17 13:48 15:36 Temperature 99.2 F Pulse Rate 78 66 Respiratory 20 18 Rate Blood Pressure 133/78 108/65 O2 Sat by Pulse 100 100 Oximetry - Reevaluation(s) Reevaluation #1: 10/17/17 14:31 Prior hospitalizations reviewed EKG Findings - EKG Comments: EKG Findings:: EKG shows normal sinus rhythm rate of 66, NH 1:30, QRS 78, QTC 394 Medical Decision Making - Medical Decision Making 32 female the ER with left lower extremity edema, cellulitis, felt outpatient treatment will admit for IV antibiotics - Lab Data Result diagrams: 10/17/17 14:30 10/17/17 14:30 Lab Results 10/17/17 10/17/17 10/17/17 Range/Units 14:30 14:30 14:52 WBC 9.0 (3.8-10.6) k/uL RBC 4.61 (3.80-5.40) m/uL Hgb 14.1 (11.4-16.0) gm/dL Hct 41.1 (34.0-46.0) % MCV 89.1 (80.0-100.0) fL MCH 30.7 (25.0-35.0) pg MCHC 34.4 (31.0-37.0) g/dL RDW 11.9 (11.5-15.5) % Plt Count 264 (150-450) k/uL Neutrophils % 74 % Lymphocytes % 18 % Monocytes % 6 % Eosinophils % 1 % Basophils % 0 % Neutrophils # 6.7 (1.3-7.7) k/uL Lymphocytes # 1.6 (1.0-4.8) k/uL Monocytes # 0.5 (0-1.0) k/uL Eosinophils # 0.1 (0-0.7) k/uL Basophils # 0.0 (0-0.2) k/uL Sodium 139 (137-145) mmol/L Potassium 4.8 (3.5-5.1) mmol/L Chloride 102 (98-107) mmol/L Carbon Dioxide 26 (22-30) mmol/L Anion Gap 11 mmol/L BUN 12 (7-17) mg/dL Creatinine 0.65 (0.52-1.04) mg/dL Est GFR (CKD-EPI)AfAm >90 (>60 ml/min/1.73 sqM) Est GFR (CKD-EPI)NonAf >90 (>60 ml/min/1.73 sqM) Glucose 80 (74-99) mg/dL Calcium 9.8 (8.4-10.2) mg/dL Phosphorus 3.7 (2.5-4.5) mg/dL Magnesium 2.1 (1.6-2.3) mg/dL Total Bilirubin 0.3 (0.2-1.3) mg/dL AST 24 (14-36) U/L ALT 19 (9-52) U/L Alkaline Phosphatase 86 (38-126) U/L Total Protein 6.9 (6.3-8.2) g/dL Albumin 4.3 (3.5-5.0) g/dL Group A Strep Rapid Negative (Negative) - Radiology Data Radiology results: report reviewed (X-ray left leg negative for acute disease), image reviewed Disposition Clinical Impression: Cellulitis, Left leg cellulitis Disposition: ADMITTED IP TO THIS [facility] Condition: Good Is patient prescribed a controlled substance at d/c from ED?: No Referrals: Lon Torres DO [Primary Care Provider] - 1-2 days
[2017-10-17] MEDS ORDERED: MORPHINE SULFATE 4 MG/ML SYRINGE IV STA (14:13)
[2017-10-17] MEDS ORDERED: SODIUM CHLORIDE 0.9% 1,000 ML IV STA (14:13)
[2017-10-17] MEDS ORDERED: cefTRIAXone 2,000 MG in SODIUM CHLORIDE 0.9% 100 ML IVPB STA (14:15)
[2017-10-17] MEDS ORDERED: CLINDAMYCIN 600 MG in DEXTROSE 5% IN WATER 50 ML IVPB STA ×2 (14:17)
[2017-10-17] MEDS ORDERED: ACETAMINOPHEN IV (For NPO) 1,000 MG in EMPTY BAG 1 BAG IVPB STA (14:17)
[2017-10-17] MEDS ORDERED: cefTRIAXone IN SWFI 2,000 MG/20 ML SYRINGE IVP ONE (14:30)
[2017-10-17] MEDS: SODIUM CHLORIDE 0.9% 1,000 ML IV STA (14:40)
[2017-10-17 14:46] LABS: Basophils % (A) 0 %; Eosinophils # (A) 0.1 k/uL (0-0.7); Eosinophils % (A) 1 %; HCT 41.1 % (34.0-46.0); HGB 14.1 gm/dL (11.4-16.0); Lymphocytes # (A) 1.6 k/uL (1.0-4.8); Lymphocytes % (A) 18 %; MCH 30.7 pg (25.0-35.0); MCHC 34.4 g/dL (31.0-37.0); MCV 89.1 fL (80.0-100.0); Monocytes # (A) 0.5 k/uL (0-1.0); Monocytes % (A) 6 %; Neutrophils # (A) 6.7 k/uL (1.3-7.7); Neutrophils % (A) 74 %; Platelet Count 264 k/uL (150-450); RBC 4.61 m/uL (3.80-5.40); RDW 11.9 % (11.5-15.5)
[2017-10-17 14:55] LABS: ALT 19 U/L (9-52); AST 24 U/L (14-36); Albumin 4.3 g/dL (3.5-5.0); Alkaline Phosphatase 86 U/L (38-126); Anion Gap 11 mmol/L; Blood Urea Nitrogen 12 mg/dL (7-17); Calcium 9.8 mg/dL (8.4-10.2); Carbon Dioxide 26 mmol/L (22-30); Chloride 102 mmol/L (98-107); Glucose 80 mg/dL (74-99); Magnesium 2.1 mg/dL (1.6-2.3); Phosphorus 3.7 mg/dL (2.5-4.5); Potassium 4.8 mmol/L (3.5-5.1); Sodium 139 mmol/L (137-145); Total Bilirubin 0.3 mg/dL (0.2-1.3); Total Protein 6.9 g/dL (6.3-8.2)
--- NOTE | 2017-10-17 15:23 | XR ---
EXAMINATION TYPE: XR tibia fibula LT DATE OF EXAM: 10/17/2017 COMPARISON: NONE HISTORY: Pain TECHNIQUE: 2 view left tibia and fibula FINDINGS: No acute fractures or dislocations are evident. Joint spaces are preserved. Soft tissues ar e unremarkable. Follow-up exam can be performed 7-10 days from acute trauma for continued pain. IMPRESSION: 1. Normal 2 view left tibia and fibula
[2017-10-17 17:05] VITALS: BMI 25.2
[2017-10-17] MEDS: KETOROLAC 30 MG/ML 1 ML VIAL IVP PRN (18:16)
[2017-10-17] MEDS: HYDROcodone/APAP 5-325MG 1 EACH TAB PO PRN (20:44)
[2017-10-17] MEDS: ACETAMINOPHEN TAB 325 MG TAB PO PRN (20:46)
--- NOTE | 2017-10-17 23:57 | P.HPIM ---
History of Present Illness H&P Date: 10/17/17 Chief Complaint: Left lower extremity swelling or redness and pain Hospital course Patient patient is a 32-year-old female with a known history of asthma presented to the emergency room today with a chief complaint of infection to the left lower leg swelling and redness and pain. Patient was recently discharged from the hospital with oral antibiotics due to lower cellulitis. Patient has been getting increased swelling and pain which made her to come back to the hospital. Patient denied any fever or chills. No complaints of chest pain or shortness of breath. No nausea vomiting or abdominal pain. X-ray of the left lower exudate showed no abnormality. Patient does have previous history of left lower extremity cellulitis. Does have a history of eczema of the feet and was following dermatologists in the past. Review of Systems Constitutional: Patient denies any fever or chills . No generalized weakness or weight loss. Abdomen: Patient denied nausea vomiting and diarrhea and abdominal pain. Cardiovascular: Patient denies any chest pain or short of breath no palpitations. Respiratory: patient denied any cough is from production. No shortness of breath Neurologic: Patient denied any numbness or tingling headache. Musculoskeletal: Left lower activity swelling pain and redness Skin: Negative Psychiatric: Negative Endocrine: No heat or cold intolerance. No recent weight gain. Genitourinary: No dysuria or hematuria. All other 14 point ROS negative except the above Past Medical History Past Medical History: Asthma, Neurologic Disorder Additional Past Medical History / Comment(s): pt states she has " white matter on the brain and white stuff on spinal cord possible ms." History of Any Multi-Drug Resistant Organisms: None Reported Past Surgical History: No Surgical Hx Reported Past Psychological History: Anxiety Smoking Status: Current every day smoker Past Alcohol Use History: Rare Past Drug Use History: None Reported - Past Family History Mother Family Medical History: Cancer Additional Family Medical History / Comment(s): breast cancer Father History Unknown: Yes Family Medical History: Coronary Artery Disease (CAD), Hypertension Medications and Allergies Home Medications Medication Instructions Recorded Confirmed Type Albuterol Inhaler [Ventolin Hfa 2 puff INHALATION RT-Q6H PRN 02/12/15 10/17/17 History Inhaler] Desvenlafaxine Succinate [Pristiq 50 mg PO HS PRN 10/11/17 10/17/17 History ER] SUMAtriptan SUCCINATE [Imitrex] 50 mg PO DAILY PRN 10/11/17 10/17/17 History Beclomethasone Dip 80 Mcg/Puff 1 puff INHALATION RT-BID 10/12/17 10/17/17 History [Qvar 80 mcg] Cephalexin [Keflex] 500 mg PO Q8H 7 Days #21 cap 10/15/17 10/17/17 Rx Allergies Allergy/AdvReac Type Severity Reaction Status Date / Time Penicillins Allergy Swelling Verified 10/17/17 17:07 vancomycin AdvReac Itching Verified 10/17/17 17:07 Physical Exam Vitals: Vital Signs Temp Pulse Resp BP Pulse Ox 10/17/17 16:10 97.7 F 76 18 107/75 98 10/17/17 15:36 66 18 108/65 100 10/17/17 13:48 99.2 F 78 20 133/78 100 Intake and Output 10/17/17 10/17/17 10/17/17 06:59 14:59 22:59 Other: Weight 72.575 kg PHYSICAL EXAMINATION: Patient is lying in the bed comfortably, no acute distress, awake alert and oriented.. HEENT: Normocephalic. Neck is supple. Pupils reactive. Nostrils clear. Oral cavity is moist. Ears reveal no drainage. Neck reveals no JVD, carotid bruits, or thyromegaly. CHEST EXAMINATION: Trachea is central. Symmetrical expansion. Lung morris clear to auscultation and percussion. CARDIAC: Normal S1, S2 with no gallops. No murmurs ABDOMEN: Soft. Bowel sounds normal. No organomegaly. No abdominal bruits. Extremities: reveal no edema. No clubbing or cyanosis Neurologically awake, alert, oriented x3 with well-coordinated movements. No focal deficits noted Skin: Left lower activity swelling redness and pain, tenderness over the irwin area and also possible fluid collection. Psychiatric: Coperative. Nonsuicidal Musculoskeletal: No joint swelling or deformity. Normal range of motion. Results CBC & Chem 7: 10/17/17 14:30 10/17/17 14:30 Thrombosis Risk Factor Assmnt - DVT/VTE Prophylaxis DVT/VTE Prophylaxis: Pharmacologic Prophylaxis ordered Assessment and Plan Assessment: left lower extremity cellulitis with possible abscess Eczema of bilateral feet. Asthma stable DVT prophylaxis Plan: Patient will be continued on antibiotics in the form of clindamycin. Gen. surgery will be consulted and for possible I&D. Continue the pain management with [place] and Toradol as needed. DVT prophylaxis with heparin subcu. Continue with albuterol inhalation when necessary for asthma. Will follow closely and further recommendations based on the clinical course. Time with Patient: Greater than 30
[2017-10-18] MEDS: KETOROLAC 30 MG/ML 1 ML VIAL IVP PRN ×4 (00:06→20:25)
[2017-10-18] MEDS: CLINDAMYCIN 300 MG in DEXTROSE 5% IN WATER 50 ML IVPB SCH ×4 (00:07→08:58)
[2017-10-18] MEDS: HYDROcodone/APAP 5-325MG 1 EACH TAB PO PRN ×2 (02:17→22:18)
[2017-10-18] MEDS: ACETAMINOPHEN TAB 325 MG TAB PO PRN ×2 (02:18→22:19)
[2017-10-18] MEDS ORDERED: LIDOCAINE 1% INJ 10MG/ML (20 ML MDV) SQ ONE (08:11)
[2017-10-18] MEDS ORDERED: cefTRIAXone IN SWFI 1,000 MG/10 ML SYRINGE IVP SCH (09:00)
[2017-10-18] MEDS: SODIUM CHLORIDE 0.9% 1,000 ML IV STA ×2 (11:08→22:18)
--- NOTE | 2017-10-18 11:28 | P.GSCN ---
<Lxeus Mata - Last Filed: 10/18/17 11:00> History of Present Illness Consult date: 10/18/17 Reason for Consult: Cellulitis with possible abscess History of present illness: 42-year-old female being seen at the request of the attending for a surgical eval for cellulitis involving the left lower extremity. Patient was just discharged on October 15 at that admission patient was treated for sepsis secondary to left lower extremity cellulitis. Patient stated that she noted there was an improvement in the cellulitis decreased from the reference markings at the time of discharge. Ultrasound venous Doppler of the left lower extremity that admission was negative for evidence of a DVT. stated on Wednesday this week she noted a lump left irwin lower extremity tender to the touch. By Wednesday the lump had increased in size was more painful to walk on patient return to the emergency room with the above-mentioned symptoms. Patient did have x-rays done of the left knee which was negative for an acute process. There is noted cellulitis left lower extremity with a lump approximate size of a dime noted to the left irwin positive tenderness tenderness Review of Systems Essentially unremarkable except as mentioned in the present illness Past Medical History Past Medical History: Asthma, Neurologic Disorder Additional Past Medical History / Comment(s): pt states she has " white matter on the brain and white stuff on spinal cord possible ms." History of Any Multi-Drug Resistant Organisms: None Reported Past Surgical History: No Surgical Hx Reported Past Psychological History: Anxiety Smoking Status: Current every day smoker Past Alcohol Use History: Rare Past Drug Use History: None Reported - Past Family History Mother Family Medical History: Cancer Additional Family Medical History / Comment(s): breast cancer Father History Unknown: Yes Family Medical History: Coronary Artery Disease (CAD), Hypertension Medications and Allergies Home Medications Medication Instructions Recorded Confirmed Type RX: Albuterol Inhaler [Ventolin 2 puff INHALATION RT-Q6H PRN 02/12/15 10/17/17 History Hfa Inhaler] RX: Desvenlafaxine Succinate 50 mg PO HS PRN 10/11/17 10/17/17 History [Pristiq ER] RX: SUMAtriptan SUCCINATE [Imitrex] 50 mg PO DAILY PRN 10/11/17 10/17/17 History RX: Beclomethasone Dip 80 Mcg/Puff 1 puff INHALATION RT-BID 10/12/17 10/17/17 History [Qvar 80 mcg] Acetaminophen Tab [Tylenol Tab] 500 mg PO Q6H #1 tablet 10/20/17 Rx RX: Clindamycin [Cleocin] 300 mg PO TID #21 capsule 10/20/17 Rx Allergies Allergy/AdvReac Type Severity Reaction Status Date / Time Penicillins Allergy Swelling Verified 10/17/17 17:07 vancomycin AdvReac Itching Verified 10/17/17 17:07 Surgical - Exam Vital Signs Temp Pulse Resp BP Pulse Ox 99.2 F 78 20 133/78 100 10/17/17 13:48 10/17/17 13:48 10/17/17 13:48 10/17/17 13:48 10/17/17 13:48 GENERAL APPEARANCE: 32-year-old female patient is alert, oriented, in no acute distress. Reports experiencing left lower extremity pain VITAL SIGNS: Reviewed HEENT: Head is normocephalic and atraumatic. Pupils are equal and reactive. The nares are patent. Oropharynx is clear without lesions. NECK: Supple without lymphadenopathy. Traches midline. HEART: S1, S2. Regular rate and rhythm. No murmur denying chest pain LUNGS: No crackles or wheezes are heard. Good air movement bilaterally ABDOMEN: Soft, nontender, nondistended with good bowel sounds. No peritoneal signs. No palpable organomegaly or masses. EXTREMITIES: Normal skin color and turgor. No cyanosis, rash, ulceration, clubbing or edema. Radial pedal pulses are 2/4 bilaterally. Left lower irwin lump noted tender to the touch with cellulitis noted no calf tenderness NEUROLOGICAL: No focal deficits. Strength and sensation are grossly intact. Results - Labs 10/17/17 14:30 10/17/17 14:30 Microbiology - Last 24 Hours (Table) 10/17/17 14:52 Group A Strep Throat Culture - Preliminary Throat Diabetes panel 10/17/17 Range/Units 14:30 Sodium 139 (137-145) mmol/L Potassium 4.8 (3.5-5.1) mmol/L Chloride 102 (98-107) mmol/L Carbon Dioxide 26 (22-30) mmol/L BUN 12 (7-17) mg/dL Creatinine 0.65 (0.52-1.04) mg/dL Glucose 80 (74-99) mg/dL Calcium 9.8 (8.4-10.2) mg/dL AST 24 (14-36) U/L ALT 19 (9-52) U/L Alkaline Phosphatase 86 (38-126) U/L Total Protein 6.9 (6.3-8.2) g/dL Albumin 4.3 (3.5-5.0) g/dL Calcium panel 10/17/17 Range/Units 14:30 Calcium 9.8 (8.4-10.2) mg/dL Phosphorus 3.7 (2.5-4.5) mg/dL Albumin 4.3 (3.5-5.0) g/dL Pituitary panel 10/17/17 Range/Units 14:30 Sodium 139 (137-145) mmol/L Potassium 4.8 (3.5-5.1) mmol/L Chloride 102 (98-107) mmol/L Carbon Dioxide 26 (22-30) mmol/L BUN 12 (7-17) mg/dL Creatinine 0.65 (0.52-1.04) mg/dL Glucose 80 (74-99) mg/dL Calcium 9.8 (8.4-10.2) mg/dL Adrenal panel 10/17/17 Range/Units 14:30 Sodium 139 (137-145) mmol/L Potassium 4.8 (3.5-5.1) mmol/L Chloride 102 (98-107) mmol/L Carbon Dioxide 26 (22-30) mmol/L BUN 12 (7-17) mg/dL Creatinine 0.65 (0.52-1.04) mg/dL Glucose 80 (74-99) mg/dL Calcium 9.8 (8.4-10.2) mg/dL Total Bilirubin 0.3 (0.2-1.3) mg/dL AST 24 (14-36) U/L ALT 19 (9-52) U/L Alkaline Phosphatase 86 (38-126) U/L Total Protein 6.9 (6.3-8.2) g/dL Albumin 4.3 (3.5-5.0) g/dL Assessment and Plan Assessment: impression Present on admission left lower extremity cellulitis with increased tenderness with a small size lump noted abscess not ruled out failed outpatient treatment Recent admission for treatment of left lower extremity cellulitis failed outpatient treatment History of eczema of the feet X-ray of the left lower extremity negative Plan Ultrasound left lower extremity evaluate for an abscess Infectious disease recommendations appreciated noted DVT and GI prophylaxis Pain control IV fluid for hydration Clindamycin as ordered per infectious disease Will follow with you with further recommendations after ultrasound reviewed Surgical consultation note dictated for Dr. mckeon The above impression and plan of care have been discussed and directed by signing physician. Lexus Mata nurse practitioner acting as scribe for signing physician. <Thaddeus Mckeon - Last Filed: 10/21/17 12:49> Surgical - Exam Vital Signs Temp Pulse Resp BP Pulse Ox 99.2 F 78 20 133/78 100 10/17/17 13:48 10/17/17 13:48 10/17/17 13:48 10/17/17 13:48 10/17/17 13:48 Results - Labs 10/17/17 14:30 10/17/17 14:30 Microbiology - Last 24 Hours (Table) 10/17/17 14:30 Blood Culture - Preliminary Blood No Growth after 72 hours
--- NOTE | 2017-10-18 12:14 | CONS ---
CONSULTATION DATE OF SERVICE: 10/18/2017 REASON FOR CONSULTATION: Left neck abscess and cellulitis. HISTORY OF PRESENT ILLNESS: The patient is a 32-year-old female who was recently admitted at [facility] from 10/12 until 10/15/2017 where the patient was treated with left lower extremity cellulitis. The patient was treated with IV antibiotic. Apparently the patient red man syndrome to the vancomycin and that was discontinued and she was discharged home on oral Keflex. The patient says she was taking her oral Keflex; however, the left leg started getting more swollen and red and she did form a bump on the left anterior irwin area. Patient describing pain to the left leg to be more of a throbbing pain, 5 to 6/10, and no radiation. The patient did have some chills with it, but denies any high-grade fever. With these symptoms, the patient presented back to the [facility] ER. The patient evaluated by the ER physician has been diagnosed with cellulitis. The patient was started on Rocephin and clindamycin with patient having PENICILLIN and VANCO allergy. Surgery was consulted for possible drainage of this area and ID was consulted for further recommendation regarding antibiotic therapy. REVIEW OF SYSTEMS: CONSTITUTIONAL: Positive for weakness and some chills. EYES: No complaint. ENT: No complaint. RESPIRATORY: No complaint. CARDIOVASCULAR: No complaint. GENITOURINARY: No complaint. GASTROINTESTINAL: No complaint. MUSCULOSKELETAL: As per HPI. INTEGUMENTARY: As per HPI. PSYCHOLOGICAL: No complaint. ENDOCRINE: No complaint. NEUROLOGIC: No complaint. PAST MEDICAL HISTORY: Significant for asthma, anxiety, and lower extremity cellulitis. PAST SURGICAL HISTORY: No major surgeries. SOCIAL HISTORY: Current everyday smoker. Rarely drinks. No drug use. FAMILY HISTORY: Mother with history of breast cancer. Father history of heart disease and hypertension. ALLERGIES: Allergies to PENICILLIN and VANCOMYCIN seemed more of a red man syndrome rather than a true allergy. MEDICATION: Currently the patient is on Rocephin 1 gram q.12 hours. She is on Tylenol, Bates, clindamycin 300 q.8 and Toradol. PHYSICAL EXAMINATION: On examination, blood pressure is 119/74 with a pulse of 75, temperature 97.6. She is 99% on room air. General description is a middle-aged female lying in bed in no distress. No tachypnea or accessory muscle of respiration use. HEENT examination shows no pallor or scleral icterus. Oral mucous membrane is dry. No pharyngeal erythema or thrush. NECK: Trachea central. No thyromegaly. LUNGS: Unlabored breathing, clear to auscultation anteriorly. No wheeze or crackle. HEART: S1, S2. Regular rate and rhythm. No added sounds. ABDOMEN: Soft, no tenderness. No guarding or rigidity. EXTREMITIES: No edema of feet. EXAMINATION LEFT LEG: She did have an area of with a small tender spot on the anterior irwin area slightly fluctuant. No drainage. No evidence of athlete's foot. NEUROLOGICAL: Patient is awake, alert, oriented x3. Mood and affect normal. LABS: Hemoglobin is 14.1, white count 9.0 with a BUN of 12, creatinine 0.65. Electrolytes have been normal. Liver enzymes are normal. Urine HCG was negative. DIAGNOSTIC IMPRESSION AND PLAN: 1. Patient with acute left lower extremity cellulitis with possible abscess formation failing outpatient oral Keflex therapy with question of possible methicillin- resistant Staphylococcus aureus. 2. Patient noted to have multiple antibiotic allergies with reaction to the vancomycin described more of a red man syndrome rather than true allergy. PLAN: 1. Await the nonvascular ultrasound of this area which confirms the abscess formation should be drained and the fluid sent for cultures. 2. Discontinue Rocephin. Will increase the clindamycin to 600 q.8. 3. Depending upon the clinical response as well as cultures, will adjust her medication further if needed. Thank you for this consultation. Will follow this patient along with you. MMODL / IJN: [id number] /
--- NOTE | 2017-10-18 12:20 | US ---
EXAMINATION TYPE: US extremity nonvasc mass LT DATE OF EXAM: 10/18/2017 COMPARISON: CLINICAL HISTORY: Ultrasound left lower extremity possible abscess. Left anterior lower leg redness w ith lump. Patient states being on antibiotics for one week and redness has been better. Lump appear ed Wednesday and has been getting worse. Area of palpable lump scanned. Superficial edema seen. No prominent masses or lesions seen. IMPRESSION: Findings compatible superficial edema correlate for cellulitis. No diagnostic evidence o f abscess or mass by ultrasound.
[2017-10-18] MEDS: CLINDAMYCIN 600 MG in DEXTROSE 5% IN WATER 50 ML IVPB SCH ×4 (14:05→21:11)
--- NOTE | 2017-10-19 01:46 | P.PN ---
Subjective Progress Note Date: 10/18/17 Principal diagnosis: Left lower extremity cellulitis Patient patient is a 32-year-old female with a known history of asthma presented to the emergency room today with a chief complaint of infection to the left lower leg swelling and redness and pain. Patient was recently discharged from the hospital with oral antibiotics due to lower cellulitis. Patient has been getting increased swelling and pain which made her to come back to the hospital. Patient denied any fever or chills. No complaints of chest pain or shortness of breath. No nausea vomiting or abdominal pain. X-ray of the left lower exudate showed no abnormality. Patient does have previous history of left lower extremity cellulitis. Does have a history of eczema of the feet and was following dermatologists in the past. 10/18/2017 Patient is being continued on antibiotics in the form of clindamycin. Left lower extremity ultrasound showed no evidence of fluid collection. General surgery is following. Otherwise swelling slightly improved. No fever no chills. No nausea vomiting or abdominal pain. All other review of systems negative except the above Current medications reviewed. Objective - Vital Signs Vital signs: Vital Signs Temp 98.2 F 10/18/17 20:08 Pulse 64 10/18/17 20:08 Resp 16 10/18/17 20:08 BP 111/74 10/18/17 20:08 Pulse Ox 100 10/18/17 20:08 Intake & Output 10/18/17 10/18/17 10/19/17 06:59 18:59 06:59 Intake Total 360 Balance 360 Intake: Oral 360 Other: # Voids 1 - Exam Patient is lying in the bed comfortably, no acute distress, awake alert and oriented.. HEENT: Normocephalic. Neck is supple. Pupils reactive. Nostrils clear. Oral cavity is moist. Ears reveal no drainage. Neck reveals no JVD, carotid bruits, or thyromegaly. CHEST EXAMINATION: Trachea is central. Symmetrical expansion. Lung morris clear to auscultation and percussion. CARDIAC: Normal S1, S2 with no gallops. No murmurs ABDOMEN: Soft. Bowel sounds normal. No organomegaly. No abdominal bruits. Extremities: reveal no edema. No clubbing or cyanosis Neurologically awake, alert, oriented x3 with well-coordinated movements. No focal deficits noted Skin: Left lower activity swelling redness and pain, tenderness over the irwin area and also possible fluid collection. Psychiatric: Coperative. Nonsuicidal Musculoskeletal: No joint swelling or deformity. Normal range of motion. - Labs CBC & Chem 7: 10/17/17 14:30 10/17/17 14:30 Labs: Microbiology - Last 24 Hours (Table) 10/17/17 14:30 Blood Culture - Preliminary Blood No Growth after 24 hours 10/17/17 14:52 Group A Strep Throat Culture - Preliminary Throat Assessment and Plan Assessment: left lower extremity cellulitis with possible abscess Eczema of bilateral feet. Asthma stable DVT prophylaxis Plan: Patient will be continued on antibiotics in the form of clindamycin. Continue with warm compresses. Gen. surgery has seen the patient.. Continue the pain management with [place] and Toradol as needed. DVT prophylaxis with heparin subcu. Continue with albuterol inhalation when necessary for asthma. Will follow closely and further recommendations based on the clinical course.
[2017-10-19] MEDS: CLINDAMYCIN 600 MG in DEXTROSE 5% IN WATER 50 ML IVPB SCH ×6 (04:08→20:28)
[2017-10-19] MEDS: KETOROLAC 30 MG/ML 1 ML VIAL IVP PRN ×3 (06:03→18:58)
[2017-10-19] MEDS: ONDANSETRON 4 MG/2 ML VIAL IVP PRN ×2 (09:42→16:02)
[2017-10-19] MEDS: ACETAMINOPHEN TAB 325 MG TAB PO PRN (15:58)
[2017-10-19] MEDS ORDERED: SUMAtriptan SUCCINATE 50 MG TAB PO PRN (18:51)
[2017-10-19] MEDS ORDERED: DESVENLAFAXINE SUCCINATE 50 MG TAB.ER.24H PO PRN (18:51)
[2017-10-19] MEDS: SODIUM CHLORIDE 0.9% 1,000 ML IV SCH (19:05)
[2017-10-19] MEDS: BUDESONIDE 1 MG/2 ML NEBU INHALATION SCH (21:20)
--- NOTE | 2017-10-19 22:21 | PN ---
PROGRESS NOTE DATE OF SERVICE: 10/19/2017. REASON FOR FOLLOWUP: Left leg cellulitis. INTERVAL HISTORY: The patient is afebrile. She is breathing comfortably. Denies having any chest pain, cough. Left leg swelling slightly decreased. Denies any diarrhea. EXAMINATION: Blood pressure is 114/68, pulse of 69, temperature of 98.1, he is 99% on room air. GENERAL DESCRIPTION: A middle-aged female, lying in bed in no distress. RESPIRATORY SYSTEM: Unlabored breathing. Clear to auscultation anteriorly. HEART: S1, S2. Regular rate and rhythm. ABDOMEN: Soft. EXTREMITIES: Left leg swelling is slightly decreased. thread cutter tender to touch. LABS: No new labs have been obtained today. DIAGNOSTIC IMPRESSION AND PLAN: Patient with acute left lower extremity cellulitis, failing outpatient oral Keflex therapy. Currently on clindamycin with some decreased in overall swelling and redness. Will continue watching the clinical condition closely. Continue supportive care. MMODL / IJN: [id number] /
[2017-10-20] MEDS: KETOROLAC 30 MG/ML 1 ML VIAL IVP PRN ×2 (04:10→12:03)
[2017-10-20] MEDS: CLINDAMYCIN 600 MG in DEXTROSE 5% IN WATER 50 ML IVPB SCH ×4 (04:11→11:55)
[2017-10-20] MEDS: SODIUM CHLORIDE 0.9% 1,000 ML IV SCH (04:14)
--- NOTE | 2017-10-20 07:25 | PN ---
PROGRESS NOTE DATE OF SERVICE: 10/19/2017 PRESENTING COMPLAINT: Cellulitis. INTERVAL HISTORY: Patient admitted with left lower extremity cellulitis. The area of redness and tenderness is coming down. The patient started to tolerate diet. Overall feeling better. REVIEW OF SYSTEMS: Review of systems done for constitutional, cardiovascular, GI, pulmonary; relevant findings as above. CURRENT MEDICATIONS: Current medications are reviewed that include clindamycin. PHYSICAL EXAMINATION: On examination, temperature 98.1, pulse 69, respiratory 18, blood pressure 114/68, pulse ox 99% on room air. GENERAL APPEARANCE: Sitting up, comfortable. EYES: Pupils equal. Conjunctivae normal. HENT: External appearance of nose and ears normal. Oral cavity normal. NECK: JVD not raised. Mass not palpable. RESPIRATORY: Effort normal. LUNGS: Minimal wheezing. CARDIOVASCULAR: First and second sounds normal. No edema. ABDOMEN: Soft, nontender. Liver and spleen not palpable. PSYCHIATRY: Alert and oriented x3. Mood and affect normal. DERMATOLOGICAL: Area of redness of the left irwin decreased compared to the skin marker. INVESTIGATIONS: No blood work from today. ASSESSMENT: 1. Acute left lower extremity cellulitis, probably from re-using a razor on the skin. 2. Mild persistent asthma. 3. Anxiety, not otherwise specified. PLAN: Care was discussed in detail with the patient. Continue with the antibiotic. Home medications to be continued. Will give bronchodilators. MMODL / IJN: [id number] /
[2017-10-20] MEDS: ALBUTEROL NEBULIZED 2.5 MG/3 ML INHALATION SCH ×2 (07:35→13:33)
[2017-10-20] MEDS: BUDESONIDE 1 MG/2 ML NEBU INHALATION SCH (07:35)
[2017-10-20 10:00] VITALS: RESP 16
--- NOTE | 2017-10-20 13:16 | PN ---
PROGRESS NOTE DATE OF SERVICE: 10/20/2017. REASON FOR FOLLOWUP: Left lower extremity cellulitis. INTERVAL HISTORY: The patient is afebrile. She is breathing comfortably. Left leg swelling, tenderness is slightly decreased. She is able to walk without any worsening pain. No abdominal pain and no diarrhea. EXAMINATION: Blood pressure 101/68 with a pulse of 74, temperature is 97.6. He is 99% on room air. General description is a middle aged female up in the chair in no distress. Respiratory system: Unlabored breathing. Clear to auscultation anteriorly. Heart S1, S2. Regular rate and rhythm. Abdomen soft, no tenderness. Left leg swelling and redness has slightly decreased. LAB: Blood cultures remain to be negative. DIAGNOSTIC IMPRESSION AND PLAN: Patient with acute left lower extremity cellulitis failing outpatient oral Keflex therapy seemed to be responding to the clindamycin that will be switched to p.o. 500 3 times a day for another week along with an Rosendo wrap to keep some of the swelling down with close outpatient followup. MMODL / IJN: [id number] /
[2017-10-20 13:57] VITALS: BP 105/66; PULSE 67; TEMP 97.7
--- NOTE | 2017-10-20 15:49 | P.PN ---
Progress Note - Text Progress Note Date: 10/20/17 The patient's lower extremity cellulitis has almost entirely resolved. She is being discharged home per medicine. On exam the cellulitis has improved dramatically. She will follow-up as needed.
--- NOTE | 2017-10-21 07:17 | DS ---
DISCHARGE SUMMARY DATE OF ADMISSION: October 17, 2017. DATE OF DISCHARGE: October 20, 2017. FINAL DIAGNOSES: 1. Acute left lower extremity cellulitis, probably from reusing a razor to shave. 2. Mild persistent asthma. 3. Anxiety not otherwise specified. HOSPITAL COURSE: This patient presents with cellulitis left lower extremity, probably from using a razor. The patient is given IV clindamycin to which she responded and area markedly improved by the time of discharge. No fever, no white count. CONSULTATION: Dr. Fleming from Infectious Disease, Dr. Mann, general surgery. PHYSICAL EXAMINATION: On examination, area of redness is greatly improved. Lungs are fair entry. Cardiovascular 1st and 2nd sounds normal. DISCHARGE MEDICATIONS: 1. Ventolin HFA 2 puffs q.6h p.r.n. 2. Pristiq ER 50 mg q.h.s. p.r.n. 3. Imitrex p.r.n. 4. QVAR 80 mcg 1 puff b.i.d. 5. Tylenol 500 mg q.6 p.r.n. 6. Clindamycin 300 mg p.o. t.i.d. 21 capsule. FOLLOWUP: Follow up with Dr. Torres in 1 week. MMODL / IJN: [id number] /
--- NOTE | 2017-10-28 07:52 | CDI ---
Last Revision, May 2017 Documentation Clarification Form Date: 10/28/17 From: Ora Briceño Phone: If you have a question regarding this query, please contact Hayde Hope at [phone] between 8am and 5pm. Admit Date: 10/17/2017 3:51:00 PM Patient Name: Geraldine Valdovinos Visit Number: [id number] Discharge Date: 10/20/17 ATTENTION: The Clinical Documentation Specialists (CDI) and [facility] Coding Staff appreciate your assistance in clarifying documentation. Please respond to the clarification below the line at the bottom and electronically sign. The CDI & [facility] Coding staff will review the response and follow-up if needed. Please note: Queries are made part of the Legal Health Record. If you have any questions, please contact the author of this message via ITS. Dr. Adrian Pereira Possible abscess is documented in the H&P, both consult notes and in Dr. Caba' s 10/18 progress note Patient history/risk factors: Patient was admitted with cellulitis of the left lower extremitiy probably from reusing a razor with failed outpatient treatment. Patient was recently discharged with left lower extremity cellulitis. Clinical Indicators: Small size lump on left irwin that was tender to touch. Radiology findings: Ultrasound of left lower extremitiy: Findings compatible with superficial edema correlate for cellulitis. No diagnostic evidence of abscess or mass by ultrasound. Consults: In your professional opinion, can you please clarify if abscess of left lower extremity was? Ruled In Ruled Out Other, please specify Unable to determine possible abscess on left lower extremity present on admission . [facility]
== END 2017-10-20 15:37 | disposition home or self-care (01) | DRG 603 ==
LOC: EC 13:46 → 6PED 15:51
PROVIDERS: ADMIT Hospitalist; ATTEND Hospitalist
DX: L03.116 Cellulitis of left lower limb (principal); L02.416 Cutaneous abscess of left lower limb; F41.9 Anxiety disorder, unspecified; J45.30 Mild persistent asthma, uncomplicated; F17.210 Nicotine dependence, cigarettes, uncomplicated; L30.9 Dermatitis, unspecified; Z79.899 Other long term (current) drug therapy; Z88.1 Allergy status to other antibiotic agents; Z88.0 Allergy status to penicillin; Z80.3 Family history of malignant neoplasm of breast; Z82.49 Family history of ischemic heart disease and other diseases of the circulatory system
CPT/HCPCS: 36415; 80053; 81025; 83735; 84100; 85025; 87040; 87081; 87430; 93005; 94640; 96365; 96375; 99285

== ENCOUNTER 2018-08-08 19:52 | Emergency (ER) | payer OTHER ==
[2018-08-08] MEDS ORDERED: IBUPROFEN 600 MG STARTER PACK 4 TAB BTL PO STA (21:33)
--- NOTE | 2018-08-08 22:02 | ED ---
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 She presents the emergency department today for evaluation of fever, body aches and nonproductive cough. Patient reports that she began having symptoms on of last week, throughout the weekend she had a fever which she's been treating with [id number] antipyretics. She reports that she's been using her inhalers regularly but just feels completely run down. Patient does not believe she received a flu vaccine this year but is otherwise fully vaccinated. - Related Data Home Medications Medication Instructions Recorded Confirmed Albuterol Inhaler [Ventolin Hfa 2 puff INHALATION RT-Q6H PRN 02/12/15 08/08/18 Inhaler] Desvenlafaxine Succinate [Pristiq 50 mg PO HS 10/11/17 08/08/18 ER] SUMAtriptan SUCCINATE [Imitrex] 50 mg PO DAILY PRN 10/11/17 08/08/18 Allergies Allergy/AdvReac Type Severity Reaction Status Date / Time Penicillins Allergy Swelling Verified 08/08/18 21:25 vancomycin AdvReac Itching Verified 08/08/18 21:25 Review of Systems ROS Statement: Those systems with pertinent positive or pertinent negative responses have been documented in the HPI. ROS Other: All systems not noted in ROS Statement are negative. Past Medical History Past Medical History: Asthma, Neurologic Disorder Additional Past Medical History / Comment(s): pt states she has " white matter on the brain and white stuff on spinal cord possible ms." History of Any Multi-Drug Resistant Organisms: None Reported Past Surgical History: No Surgical Hx Reported Past Psychological History: Anxiety Smoking Status: Former smoker Past Alcohol Use History: Rare Past Drug Use History: None Reported - Past Family History Mother Family Medical History: Cancer Additional Family Medical History / Comment(s): breast cancer Father History Unknown: Yes Family Medical History: Coronary Artery Disease (CAD), Hypertension General Exam - General Exam Comments Initial Comments: Physical Exam GENERAL: Patient is well-developed and well-nourished. Patient is nontoxic and well- hydrated and is in no distress. HENT: Normocephalic, Atraumatic. EYES: PERRL, EOMI PULMONARY: Unlabored respirations. No audible rales rhonchi or wheezing was noted. CARDIOVASCULAR: There is a regular rate and rhythm without any murmurs gallops or rubs. ABDOMEN: Soft and nontender with normal bowel sounds. SKIN: Skin is clear with no lesions or rashes and otherwise unremarkable. : Deferred NEUROLOGIC: Patient is alert and oriented x3. Moving all extremities spontaneously MUSCULOSKELETAL: Normal extremities with adequate strength and full range of motion. No lower extremity swelling or edema. No calf tenderness. PSYCHIATRIC: Normal psychiatric evaluation. Limitations: no limitations Limitations: no limitations Course Vital Signs 08/08/18 08/08/18 08/08/18 19:59 21:00 21:27 Temperature 100.6 F H 101.6 F H Pulse Rate 98 Respiratory 18 18 Rate Blood Pressure 135/83 O2 Sat by Pulse 100 Oximetry Medical Decision Making - Medical Decision Making The patient was seen and evaluated history was obtained from the patient History and physical exam are concerning for flu or viral illness Patient was swabbed Patient is influenza a positive however patient has had symptoms for 3-4 days at this point, not a candidate for Tamiflu. The importance of supportive care and appropriate dosing and timing of antipyretics were discussed. Return parameters were discussed. All questions pertaining care were answered and the patient was discharged home in stable condition. - Lab Data Lab Results 08/08/18 08/08/18 Range/Units 21:00 21:00 Influenza Type A RNA Detected H (Not Detectd) Influenza Type B (PCR) Not Detected (Not Detectd) Group A Strep Rapid Negative (Negative) Disposition Clinical Impression: Influenza Disposition: HOME SELF-CARE Condition: Stable Instructions (If sedation given, give patient instructions): Upper Respiratory Infection (ED) Is patient prescribed a controlled substance at d/c from ED?: No Referrals: Lon Torres DO [Primary Care Provider] - 1-2 days
[2018-08-08 22:35] VITALS: BP 120/78; PULSE 87; RESP 16; TEMP 98.7
== END 2018-08-08 22:35 | disposition home or self-care (01) ==
LOC: EC 19:52
DX: J10.1 Influenza due to other identified influenza virus with other respiratory manifestations (principal); J45.909 Unspecified asthma, uncomplicated; F41.9 Anxiety disorder, unspecified; Z87.891 Personal history of nicotine dependence; Z79.899 Other long term (current) drug therapy; Z88.0 Allergy status to penicillin; Z88.1 Allergy status to other antibiotic agents
CPT/HCPCS: 87081; 87430; 87502; 99283

== ENCOUNTER 2019-11-07 09:45 | Emergency (ER) | payer OTHER ==
[2019-11-07] MEDS ORDERED: SODIUM CHLORIDE 0.9% 1,000 ML IV STA (10:17)
[2019-11-07] MEDS ORDERED: FAMOTIDINE 20 MG TAB PO STA (10:18)
[2019-11-07] MEDS ORDERED: predniSONE 20 MG TAB PO STA (10:18)
[2019-11-07] MEDS ORDERED: IPRATROPIUM-ALBUTEROL 3 ML NEB INHALATION STA (10:18)
--- NOTE | 2019-11-07 10:22 | ED ---
SOB HPI - General Chief Complaint: Shortness of Breath Stated Complaint: shortness of breath Time Seen by Provider: 11/07/19 10:04 Source: patient Mode of arrival: ambulatory Limitations: no limitations - History of Present Illness Initial Comments: Patient is a 34-year-old female with history of asthma presenting to emergency Department with chief complaint of shortness of breath. States the symptoms began 2 days ago with gradual increase in severity. Reports dyspnea on exertion with minimal improvement with albuterol inhaler. Patient states going to an urgent care and was prescribed a nebulized steroid treatment with no significant improvement in symptoms. Patient reports increased wheezing but not at the moment. States the wheezing is typically worse in the morning. Does report a dry, nonproductive cough that is exacerbated with shortness of breath. Denies any night sweats fevers or chills. Denies any nausea or vomiting diarrhea. Denies any chest pain back pain abdominal pain. Patient denies exogenous estrogens, recent prolonged periods of inactivity, hospital stay, chemotherapy treatment, history of DVT or PE or unilateral swelling of the lower extremities. Patient did get tested for Covid at the urgent care with results still pending. - Related Data Home Medications Medication Instructions Recorded Confirmed Albuterol Inhaler (Mhu) [Ventolin 2 puff INHALATION RT-Q6H PRN 02/12/15 11/07/19 Hfa Inhaler (Mhu)] Desvenlafaxine Succinate [Pristiq 50 mg PO HS 10/11/17 11/07/19 ER] SUMAtriptan SUCCINATE [Imitrex] 50 mg PO DAILY PRN 10/11/17 11/07/19 Previous Rx's Medication Instructions Recorded Azithromycin [Zithromax Z-pack] 0 mg PO DIRECTED #1 pack 11/07/19 Allergies Allergy/AdvReac Type Severity Reaction Status Date / Time Penicillins Allergy Swelling Verified 11/07/19 09:51 vancomycin AdvReac Itching Verified 11/07/19 09:51 Review of Systems ROS Statement: Those systems with pertinent positive or pertinent negative responses have been documented in the HPI. ROS Other: All systems not noted in ROS Statement are negative. Past Medical History Past Medical History: Asthma, Neurologic Disorder Additional Past Medical History / Comment(s): pt states she has " white matter on the brain and white stuff on spinal cord possible ms." History of Any Multi-Drug Resistant Organisms: None Reported Past Surgical History: No Surgical Hx Reported Past Psychological History: Anxiety Smoking Status: Former smoker Past Alcohol Use History: Rare Past Drug Use History: None Reported - Past Family History Mother Family Medical History: Cancer Additional Family Medical History / Comment(s): breast cancer Father History Unknown: Yes Family Medical History: Coronary Artery Disease (CAD), Hypertension General Exam Limitations: no limitations General appearance: alert, in no apparent distress Head exam: Present: atraumatic, normocephalic, normal inspection Eye exam: Present: normal appearance, PERRL, EOMI Pupils: Present: normal accommodation ENT exam: Present: normal exam, mucous membranes moist Neck exam: Present: normal inspection, full ROM Respiratory exam: Present: normal lung sounds bilaterally. Absent: respiratory distress, wheezes, rales Cardiovascular Exam: Present: regular rate, normal rhythm, normal heart sounds Extremities exam: Present: normal inspection, full ROM Back exam: Present: normal inspection, full ROM Neurological exam: Present: alert, oriented X3 Psychiatric exam: Present: normal affect, normal mood Skin exam: Present: warm, dry, intact, normal color Course Vital Signs 11/07/19 11/07/19 11/07/19 09:48 10:51 11:02 Temperature 97.4 F L Pulse Rate 86 76 80 Respiratory 18 Rate Blood Pressure 114/75 O2 Sat by Pulse 100 Oximetry 11/07/19 11:36 Temperature 98.6 F Pulse Rate 72 Respiratory 20 Rate Blood Pressure 106/70 O2 Sat by Pulse 100 Oximetry Medical Decision Making - Medical Decision Making Patient is a 34-year-old female with history of asthma presenting to emergency Department with a chief complaint shortness of breath. On exam patient does not appear to be in any respiratory distress. No signs of wheezing or rhonchi. Patient was given 1 amp and steroids. On reevaluation patient reports improvement of symptoms. Chest x-ray reveals a lower lobe infiltrate suggesting possible pneumonia. Patient was given 1 g or Rocephin in the ED. Will be discharged with a Z-Leobardo. Vitals are stable on discharge. Patient feels improved and is ready to go home. She was advised to follow-up with her primary care physician. Return parameters were thoroughly discussed patient's or standing agreeable. Case discussed with physician. - Lab Data Result diagrams: 11/07/19 10:20 11/07/19 10:20 Lab Results 11/07/19 11/07/19 Range/Units 10:20 10:20 WBC 8.4 (3.8-10.6) k/uL RBC 4.42 (3.80-5.40) m/uL Hgb 12.8 (11.4-16.0) gm/dL Hct 39.4 (34.0-46.0) % MCV 89.2 (80.0-100.0) fL MCH 29.1 (25.0-35.0) pg MCHC 32.6 (31.0-37.0) g/dL RDW 13.8 (11.5-15.5) % Plt Count 214 (150-450) k/uL Neutrophils % 59 % Lymphocytes % 32 % Monocytes % 6 % Eosinophils % 1 % Basophils % 1 % Neutrophils # 4.9 (1.3-7.7) k/uL Lymphocytes # 2.7 (1.0-4.8) k/uL Monocytes # 0.5 (0-1.0) k/uL Eosinophils # 0.0 (0-0.7) k/uL Basophils # 0.0 (0-0.2) k/uL Sodium 138 (137-145) mmol/L Potassium 3.8 (3.5-5.1) mmol/L Chloride 108 H (98-107) mmol/L Carbon Dioxide 20 L (22-30) mmol/L Anion Gap 10 mmol/L BUN 15 (7-17) mg/dL Creatinine 0.61 (0.52-1.04) mg/dL Est GFR (CKD-EPI)AfAm >90 (>60 ml/min/1.73 sqM) Est GFR (CKD-EPI)NonAf >90 (>60 ml/min/1.73 sqM) Glucose 76 (74-99) mg/dL Calcium 9.4 (8.4-10.2) mg/dL Total Bilirubin 0.3 (0.2-1.3) mg/dL AST 24 (14-36) U/L ALT 24 (4-34) U/L Alkaline Phosphatase 70 (38-126) U/L Total Protein 7.1 (6.3-8.2) g/dL Albumin 4.4 (3.5-5.0) g/dL Disposition Clinical Impression: Pneumonia, Shortness of breath, Cough Disposition: HOME SELF-CARE Condition: Stable Instructions (If sedation given, give patient instructions): Bacterial Pneumonia (DC) Additional Instructions: Take prescribed medication as directed. Return to emergency department if symptoms worsen. Follow up with her primary care. Prescriptions: Azithromycin [Zithromax Z-pack] 0 mg PO DIRECTED #1 pack Is patient prescribed a controlled substance at d/c from ED?: No Referrals: Lon Torres DO [Primary Care Provider] - 1-2 days Time of Disposition: 11:20
--- NOTE | 2019-11-07 10:38 | XR ---
EXAMINATION TYPE: XR chest 2V DATE OF EXAM: 11/07/2019 COMPARISON: 10/01/2012 TECHNIQUE: PA and lateral views submitted. HISTORY: Difficulty breathing FINDINGS: Subsegmental changes at the left lung base. Heart size normal with no overt failure. No pneumothorax. Mild hypertrophic change of the AC joint. Biapical pleural thickening. Slight curvature of the spine . IMPRESSION: 1. Left lower lobe infiltrate correlate clinically.
[2019-11-07 10:42] LABS: Basophils % (A) 1 %; Eosinophils % (A) 1 %; HCT 39.4 % (34.0-46.0); HGB 12.8 gm/dL (11.4-16.0); Lymphocytes # (A) 2.7 k/uL (1.0-4.8); Lymphocytes % (A) 32 %; MCH 29.1 pg (25.0-35.0); MCHC 32.6 g/dL (31.0-37.0); MCV 89.2 fL (80.0-100.0); Mean Platelet Volume 7.4; Monocytes # (A) 0.5 k/uL (0-1.0); Monocytes % (A) 6 %; Neutrophils # (A) 4.9 k/uL (1.3-7.7); Neutrophils % (A) 59 %; Platelet Count 214 k/uL (150-450); RBC 4.42 m/uL (3.80-5.40); RDW 13.8 % (11.5-15.5); WBC 8.4 k/uL (3.8-10.6)
[2019-11-07 10:55] LABS: ALT 24 U/L (4-34); AST 24 U/L (14-36); African American GFR (CKD) >90 (>60 ml/min/1.73 sqM); Albumin 4.4 g/dL (3.5-5.0); Alkaline Phosphatase 70 U/L (38-126); Anion Gap 10 mmol/L; Blood Urea Nitrogen 15 mg/dL (7-17); Calcium 9.4 mg/dL (8.4-10.2); Carbon Dioxide 20 mmol/L (22-30); Chloride 108 mmol/L (98-107); Glucose 76 mg/dL (74-99); Non-African American GFR(CKD) >90 (>60 ml/min/1.73 sqM); Potassium 3.8 mmol/L (3.5-5.1); Sodium 138 mmol/L (137-145); Total Bilirubin 0.3 mg/dL (0.2-1.3); Total Protein 7.1 g/dL (6.3-8.2)
[2019-11-07] MEDS ORDERED: cefTRIAXone IN SWFI 1,000 MG/10 ML SYRINGE IVP STA (11:25)
[2019-11-07 11:38] VITALS: BP 106/70; PULSE 72; RESP 20; TEMP 98.6
== END 2019-11-07 11:45 | disposition home or self-care (01) ==
LOC: EC 09:45
DX: J18.9 Pneumonia, unspecified organism (principal); J45.909 Unspecified asthma, uncomplicated; F41.9 Anxiety disorder, unspecified; Z79.51 Long term (current) use of inhaled steroids; Z79.899 Other long term (current) drug therapy; Z87.891 Personal history of nicotine dependence; Z88.0 Allergy status to penicillin; Z88.1 Allergy status to other antibiotic agents
CPT/HCPCS: 36415; 94640; 80053; 85025; 71046; 99285; 96374; 96361; J0696; J7512

== ENCOUNTER 2020-03-22 20:03 | Observation (INO) | payer OTHER ==
[2020-03-22] MEDS ORDERED: methylPREDNISolone SOD SUCCI 125 MG/2 ML VIAL IV STA (20:27)
[2020-03-22] MEDS ORDERED: IPRATROPIUM-ALBUTEROL 3 ML NEB INHALATION STA (20:27)
[2020-03-22] MEDS ORDERED: MAGNESIUM SULFATE-D5W PMX 1 GM in DEXTROSE/WATER 1 100ML.BAG IVPB ONE (20:57)
[2020-03-22 21:28] LABS: Basophils % (A) 0 %; Eosinophils # (A) 0.3 k/uL (0-0.7); Eosinophils % (A) 2 %; HCT 41.1 % (34.0-46.0); HGB 13.6 gm/dL (11.4-16.0); Lymphocytes # (A) 1.8 k/uL (1.0-4.8); Lymphocytes % (A) 16 %; MCH 30.8 pg (25.0-35.0); MCHC 33.1 g/dL (31.0-37.0); MCV 93.2 fL (80.0-100.0); Mean Platelet Volume 7.2; Monocytes # (A) 0.7 k/uL (0-1.0); Monocytes % (A) 6 %; Neutrophils # (A) 8.3 k/uL (1.3-7.7); Neutrophils % (A) 74 %; Platelet Count 238 k/uL (150-450); RBC 4.42 m/uL (3.80-5.40); RDW 13.4 % (11.5-15.5); WBC 11.2 k/uL (3.8-10.6)
[2020-03-22 21:44] LABS: D-Dimer 0.2 mg/L FEU (<0.60); INR 0.9 (<1.2); Prothrombin Time 9.9 sec (9.0-12.0)
[2020-03-22 21:47] LABS: ALT 12 U/L (4-34); AST 21 U/L (14-36); African American GFR (CKD) >90 (>60 ml/min/1.73 sqM); Albumin 4.8 g/dL (3.5-5.0); Alkaline Phosphatase 77 U/L (38-126); Anion Gap 8 mmol/L; Blood Urea Nitrogen 11 mg/dL (7-17); Calcium 10.2 mg/dL (8.4-10.2); Carbon Dioxide 27 mmol/L (22-30); Chloride 104 mmol/L (98-107); Glucose 110 mg/dL (74-99); Magnesium 2.1 mg/dL (1.6-2.3); Non-African American GFR(CKD) 89 (>60 ml/min/1.73 sqM); Potassium 4.1 mmol/L (3.5-5.1); Sodium 139 mmol/L (137-145); Total Bilirubin 0.3 mg/dL (0.2-1.3); Total Protein 7.5 g/dL (6.3-8.2)
[2020-03-22] MEDS ORDERED: ALBUTEROL NEBULIZED 2.5 MG/3 ML INHALATION STA ×3 (21:47→22:06)
--- NOTE | 2020-03-22 21:48 | CT ---
EXAMINATION TYPE: CT chest angio for PE DATE OF EXAM: 03/22/2020 COMPARISON: None HISTORY: dyspnea, hx asthma CT DLP: 391.4 mGycm Automated exposure control for dose reduction was used. CONTRAST: Performed with IV Contrast, patient injected with 100 mL of Isovue 370. There are 3-D post processed images. The lungs are clear of consolidation. There is no evidence of a pulmonary mass. There is minimal atel ectasis right lung base. Heart size is normal. There is no pericardial effusion. There is normal contrast opacification of the pulmonary arteries. There are no filling defects. There is no mediastinal adenopathy. There are no hilar masses. Thoracic aorta is intact. There is no aneur ysm or dissection. The bony thorax is intact. Thoracic spine is intact. IMPRESSION: Negative CT scan of the chest. No evidence of pulmonary embolism. Minimal subsegmental atelectasis ri ght lung base.
--- NOTE | 2020-03-22 22:07 | ED ---
SOB HPI - General Chief Complaint: Shortness of Breath Stated Complaint: STAN Time Seen by Provider: 03/22/20 20:23 Source: patient Mode of arrival: ambulatory Limitations: no limitations - History of Present Illness Initial Comments: 34-year-old female history of asthma presenting today for chief complaint of increasing shortness of breath for the past week. Patient states the past week especially last 2-3 day she's had increasing shortness of breath and feeling as though her chest is tight. She states this is a curved asthma exacerbations the past she states she also has recently picked up smoking again and she feels this is exacerbating it. Patient denies any chest pain or pain with deep inspiration she denies any fevers chills or upper respiratory symptoms. Denies any calf pain or new leg swelling. Patient denies history of DVT/PE, recent surgeries, recent travel or injuries. Denies active cancer. Patient has no additional complaints. Upon arrival she does appear SOB, HR elevated. Patient states she performed two albuterol treatments nebulized prior to arrival. - Related Data Home Medications Medication Instructions Recorded Confirmed SUMAtriptan succinate [Imitrex] 50 mg PO TID PRN 10/11/17 03/22/20 Albuterol Inhaler [Ventolin Hfa 2 puff INHALATION RT-Q4H PRN 03/22/20 03/22/20 Inhaler] Venlafaxine HCl ER [Effexor Xr] 75 mg PO DAILY@1300 03/22/20 03/22/20 Allergies Allergy/AdvReac Type Severity Reaction Status Date / Time Penicillins Allergy Swelling Verified 03/22/20 21:45 vancomycin AdvReac Itching Verified 03/22/20 21:45 Review of Systems ROS Statement: Those systems with pertinent positive or pertinent negative responses have been documented in the HPI. ROS Other: All systems not noted in ROS Statement are negative. Past Medical History Past Medical History: Asthma, Neurologic Disorder Additional Past Medical History / Comment(s): pt states she has " white matter on the brain and white stuff on spinal cord possible ms." History of Any Multi-Drug Resistant Organisms: None Reported Past Surgical History: No Surgical Hx Reported Past Psychological History: Anxiety Smoking Status: Current some day smoker Past Alcohol Use History: Rare Past Drug Use History: None Reported - Past Family History Mother Family Medical History: Cancer Additional Family Medical History / Comment(s): breast cancer Father History Unknown: Yes Family Medical History: Coronary Artery Disease (CAD), Hypertension General Exam - General Exam Comments Initial Comments: General: The patient is awake and alert, in no distress, and does not appear acutely ill. Eye: Pupils are equal, round and reactive to light, extra-ocular movements are intact. No nystagmus. There is normal conjunctiva bilaterally. No signs of icterus. Ears, nose, mouth and throat: There are moist mucous membranes and no oral lesions. Neck: The neck is supple, there is no tenderness or JVD. Cardiovascular: There is a regular rate and rhythm. No murmur, rub or gallop is appreciated. Respiratory: Diminished air movement/ lung sounds diffusely, respirations are mildly labored, breath sounds are equal. No wheezes audible no stridor rales. Can complete sentences. Very mild abdominal breathing, no retractions. Gastrointestinal: [Soft, non-distended, non-tender abdomen without masses or organomegaly noted. There is no rebound or guarding present. Musculoskeletal: Normal ROM, no tenderness. Strength 5/5. Sensation intact. Radial pulses equal bilaterally 2+. Neurological: A&O x 3. CN II-XII intact, There are no obvious motor or sensory deficits. Coordination appears grossly intact. Speech is normal. Skin: Skin is warm and dry and no rashes or lesions are noted. No LE edema, no calf pain to palpation Psychiatric: Cooperative, appropriate mood & affect, normal judgment. Limitations: no limitations Course Vital Signs 03/22/20 03/22/20 03/22/20 20:18 20:38 20:41 Temperature 97.6 F Pulse Rate 119 H 112 H Respiratory 26 H 22 Rate Blood Pressure 122/77 O2 Sat by Pulse 96 Oximetry 03/22/20 03/22/20 03/22/20 20:42 21:22 22:01 Temperature Pulse Rate 114 H 85 89 Respiratory 18 Rate Blood Pressure 119/69 O2 Sat by Pulse 97 Oximetry 03/22/20 03/22/20 03/22/20 22:08 22:09 22:19 Temperature Pulse Rate 88 88 96 Respiratory Rate Blood Pressure O2 Sat by Pulse Oximetry Medical Decision Making - Medical Decision Making Improvement of movement with now audible wheeze. Patient has had total of 5 treatments between at home and ER. Patient will be admitted for further treatments, IV steroids and monitoring. Patient CTA no PE. Patient labs stable. Dr. Simms is agreeable to care plan as well as admission. pt givne magnesium in the ER as well as solumedrol. - Lab Data Result diagrams: 03/22/20 21:19 03/22/20 21:19 Lab Results 03/22/20 03/22/20 03/22/20 Range/Units 21:19 21:19 21:19 WBC 11.2 H (3.8-10.6) k/uL RBC 4.42 (3.80-5.40) m/uL Hgb 13.6 (11.4-16.0) gm/dL Hct 41.1 (34.0-46.0) % MCV 93.2 (80.0-100.0) fL MCH 30.8 (25.0-35.0) pg MCHC 33.1 (31.0-37.0) g/dL RDW 13.4 (11.5-15.5) % Plt Count 238 (150-450) k/uL Neutrophils % 74 % Lymphocytes % 16 % Monocytes % 6 % Eosinophils % 2 % Basophils % 0 % Neutrophils # 8.3 H (1.3-7.7) k/uL Lymphocytes # 1.8 (1.0-4.8) k/uL Monocytes # 0.7 (0-1.0) k/uL Eosinophils # 0.3 (0-0.7) k/uL Basophils # 0.0 (0-0.2) k/uL PT 9.9 (9.0-12.0) sec INR 0.9 (<1.2) APTT 26.0 (22.0-30.0) sec D-Dimer 0.20 (<0.60) mg/L FEU Sodium 139 (137-145) mmol/L Potassium 4.1 (3.5-5.1) mmol/L Chloride 104 (98-107) mmol/L Carbon Dioxide 27 (22-30) mmol/L Anion Gap 8 mmol/L BUN 11 (7-17) mg/dL Creatinine 0.86 (0.52-1.04) mg/dL Est GFR (CKD-EPI)AfAm >90 (>60 ml/min/1.73 sqM) Est GFR (CKD-EPI)NonAf 89 (>60 ml/min/1.73 sqM) Glucose 110 H (74-99) mg/dL Plasma Lactic Acid Raheel (0.7-2.0) mmol/L Calcium 10.2 (8.4-10.2) mg/dL Magnesium 2.1 (1.6-2.3) mg/dL Total Bilirubin 0.3 (0.2-1.3) mg/dL AST 21 (14-36) U/L ALT 12 (4-34) U/L Alkaline Phosphatase 77 (38-126) U/L Troponin I (0.000-0.034) ng/mL Total Protein 7.5 (6.3-8.2) g/dL Albumin 4.8 (3.5-5.0) g/dL 03/22/20 03/22/20 Range/Units 21:19 21:19 WBC (3.8-10.6) k/uL RBC (3.80-5.40) m/uL Hgb (11.4-16.0) gm/dL Hct (34.0-46.0) % MCV (80.0-100.0) fL MCH (25.0-35.0) pg MCHC (31.0-37.0) g/dL RDW (11.5-15.5) % Plt Count (150-450) k/uL Neutrophils % % Lymphocytes % % Monocytes % % Eosinophils % % Basophils % % Neutrophils # (1.3-7.7) k/uL Lymphocytes # (1.0-4.8) k/uL Monocytes # (0-1.0) k/uL Eosinophils # (0-0.7) k/uL Basophils # (0-0.2) k/uL PT (9.0-12.0) sec INR (<1.2) APTT (22.0-30.0) sec D-Dimer (<0.60) mg/L FEU Sodium (137-145) mmol/L Potassium (3.5-5.1) mmol/L Chloride (98-107) mmol/L Carbon Dioxide (22-30) mmol/L Anion Gap mmol/L BUN (7-17) mg/dL Creatinine (0.52-1.04) mg/dL Est GFR (CKD-EPI)AfAm (>60 ml/min/1.73 sqM) Est GFR (CKD-EPI)NonAf (>60 ml/min/1.73 sqM) Glucose (74-99) mg/dL Plasma Lactic Acid Raheel 2.1 H* (0.7-2.0) mmol/L Calcium (8.4-10.2) mg/dL Magnesium (1.6-2.3) mg/dL Total Bilirubin (0.2-1.3) mg/dL AST (14-36) U/L ALT (4-34) U/L Alkaline Phosphatase (38-126) U/L Troponin I <0.012 (0.000-0.034) ng/mL Total Protein (6.3-8.2) g/dL Albumin (3.5-5.0) g/dL Disposition Clinical Impression: Asthma exacerbation, Dyspnea Disposition: ADMITTED IP TO THIS HOSP Condition: Stable Is patient prescribed a controlled substance at d/c from ED?: No Referrals: Lon Torres DO [Primary Care Provider] - 1-2 days Time of Disposition: 22:07 Decision to Admit Reason: Admit from EC Decision Date: 03/22/20 Decision Time: 22:07
[2020-03-22] MEDS ORDERED: SODIUM CHLORIDE 0.9% 1,000 ML IV ONE (22:13)
[2020-03-22] MEDS ORDERED: NALOXONE 0.4 MG/ML 1 ML VIAL IV PRN (22:31)
[2020-03-22] MEDS ORDERED: IPRATROPIUM-ALBUTEROL 3 ML NEB INHALATION PRN (22:32)
[2020-03-22] MEDS ORDERED: SODIUM CHLORIDE 0.9% 1,000 ML IV SCH (22:45)
[2020-03-23] MEDS: ALBUTEROL NEBULIZED 2.5 MG/3 ML INHALATION SCH ×4 (07:16→15:38)
[2020-03-23] MEDS ORDERED: predniSONE 20 MG TAB PO SCH (09:00)
[2020-03-23 11:44] VITALS: BP 117/74; RESP 18; TEMP 98.2
--- NOTE | 2020-03-23 12:19 | P.CNPUL ---
History of Present Illness Consult date: 03/23/20 Reason for consult: dyspnea History of present illness: This is a 34-year-old. Patient, asthmatic, followed up in our office on outpatient basis and the patient has been utilizing menthol rescue inhaler necessary basis as her disease is been essentially mild inflammation patient has not had any major issues with asthma control with a years. She came in for increased shortness of breath is been going on for almost a week and she has been also utilizing her respiratory rescue inhaler. No fever. No chills. No sputum production. Apparently the patient have been smoking again and she felt that this was a trigger for exacerbation. No pleurisy. No hemoptysis. No swelling lower extremities. No DVT. No pulmonary embolism. No nausea. No vomiting. No fever. No loss in the sense of taste or smell. Chest x-ray was clear. The patient was admitted for an acute asthma exacerbation. She was given 2 treatments with albuterol in the emergency and she was taken albuterol prior to her coming to the hospital. No sinus ALLERGIES. No heartburn. No eczema. No swelling in her upper airways. The white cell count is 11.2. Correlation profile is within normal limits. Blood work was essentially within normal limits. CTA in the emergency was essentially negative and there was some minimal subsegmental atelectatic changes in the right lung base. Review of Systems Constitutional: Denies chills, Denies fever Eyes: denies as per HPI, denies blurred vision, denies bulging eye, denies decreased vision, denies diplopia, denies discharge, denies dry eye, denies irritation, denies itching, denies pain, denies photophobia, denies loss of peripheral vision, denies loss of vision, denies tunnel vision/blind spots Ears: deny: decreased hearing, ear discharge, earache, tinnitus Ears, nose, mouth and throat: Denies headache, Denies sore throat Breasts: absent: as per HPI, change in shape, gynecomastia, masses, nipple discharge, pain, skin changes, swelling Cardiovascular: Reports dyspnea on exertion Respiratory: Reports cough, Reports dyspnea, Reports wheezing Gastrointestinal: Reports as per HPI Genitourinary: Reports as per HPI Menstruation: Reports as per HPI Musculoskeletal: Reports as per HPI Musculoskeletal: absent: ankle pain, ankle stiffness, ankle swelling Integumentary: Reports as per HPI Neurological: Reports as per HPI Psychiatric: Reports as per HPI Endocrine: Reports as per HPI Hematologic/Lymphatic: Reports as per HPI Allergic/Immunologic: Reports as per HPI Past Medical History Past Medical History: Asthma, Neurologic Disorder Additional Past Medical History / Comment(s): pt states she has " white matter on the brain and white stuff on spinal cord possible ms." History of Any Multi-Drug Resistant Organisms: None Reported Past Surgical History: No Surgical Hx Reported Smoking Status: Current every day smoker - Past Family History Mother Family Medical History: Cancer Additional Family Medical History / Comment(s): breast cancer Father History Unknown: Yes Family Medical History: Coronary Artery Disease (CAD), Hypertension Medications and Allergies Home Medications Medication Instructions Recorded Confirmed Type SUMAtriptan succinate [Imitrex] 50 mg PO TID PRN 10/11/17 03/22/20 History Albuterol Inhaler [Ventolin Hfa 2 puff INHALATION RT-Q4H PRN 03/22/20 03/22/20 History Inhaler] Venlafaxine HCl ER [Effexor Xr] 75 mg PO DAILY@1300 03/22/20 03/22/20 History Allergies Allergy/AdvReac Type Severity Reaction Status Date / Time Penicillins Allergy Swelling Verified 03/22/20 21:45 vancomycin AdvReac Itching Verified 03/22/20 21:45 Physical Exam Vitals: Vital Signs Temp Pulse Pulse Resp BP BP BP 03/23/20 11:43 98.2 F 71 18 117/74 03/23/20 08:49 92 03/23/20 08:37 90 03/23/20 05:28 84 03/23/20 05:18 88 03/23/20 05:15 97.8 F 76 19 114/73 03/23/20 00:29 97.6 F 86 17 117/78 03/22/20 23:00 97.9 F 96 18 100/62 03/22/20 22:19 96 03/22/20 22:09 88 03/22/20 22:08 88 03/22/20 22:01 89 03/22/20 21:22 85 18 119/69 03/22/20 20:42 114 H 03/22/20 20:41 22 03/22/20 20:38 112 H 03/22/20 20:18 97.6 F 119 H 26 H 122/77 Pulse Ox 03/23/20 11:43 97 03/23/20 08:49 03/23/20 08:37 03/23/20 05:28 03/23/20 05:18 03/23/20 05:15 94 L 03/23/20 00:29 95 03/22/20 23:00 98 03/22/20 22:19 03/22/20 22:09 03/22/20 22:08 03/22/20 22:01 03/22/20 21:22 97 03/22/20 20:42 03/22/20 20:41 03/22/20 20:38 03/22/20 20:18 96 Intake and Output 03/22/20 03/23/20 03/23/20 22:59 06:59 14:59 Intake Total 140 Balance 140 Intake: Intake, IV Titration 140 Amount Sodium Chloride 0.9% 1, 140 000 ml @ 20 mls/hr IV . Q24H [facility] Rx#:[id number] Other: Voiding Method Toilet # Voids 1 Weight 79.832 kg 79.832 kg The patient appeared well nourished and normally developed. Vital signs as documented. Head exam is unremarkable. No scleral icterus or corneal arcus noted. Neck is without jugular venous distension, thyromegaly, or carotid bruits. Carotid upstrokes are brisk bilaterally. Lungs are clear to auscultation and percussion. Cardiac exam reveals the PMI to be normally sized and situated. Rhythm is regular. First and second heart sounds normal. No murmurs, rubs or gallops. Abdominal exam reveals normal bowel sounds, no masses, no organomegaly and no aortic enlargement. Extremities are nonedematous and both femoral and pedal pulses are normal.Examination of the skin revealed no evidence of significant rashes, suspicious appearing nevi or other concerning lesions.Neurologically, the patient is awake and alert and the patient does not have any focal neurological deficit. Cranial nerves are essentially intact. Results - Laboratory Findings CBC and BMP: 03/22/20 21:19 03/22/20 21:19 PT/INR, D-dimer PT 9.9 sec (9.0-12.0) 03/22/20: INR 0.9 (<1.2) 03/22/20 21:19 D-Dimer 0.20 mg/L FEU (<0.60) 03/22/20 21:19 Abnormal lab findings: Abnormal Labs 03/22/20 03/22/20 03/22/20 21:19 21:19 21:19 WBC 11.2 H Neutrophils # 8.3 H Glucose 110 H Plasma Lactic Acid Raheel 2.1 H* 03/23/20 00:58 WBC Neutrophils # Glucose Plasma Lactic Acid Raheel 2.6 H* - Diagnostic Findings CT scan - chest: image reviewed Assessment and Plan Plan: 1 acute exacerbation of mild intermittent bronchial asthma 2 shortness of breath secondary to above, CT angios and that was done in the ED was essentially within normal limits 3 history of chronic headaches Plan Patient can be discharged home on a prednisone burst taper further with 40 mg to be tapered by 10 mg every 4 days. Continue using Ventolin rescue inhaleron outpatient basis. No other comorbidities. Smoking cessation counseling was done. The patient can be discharged home to be followed up in our office she has had asthma exacerbation. She is free for discharge from the pulmonary standpoint.
[2020-03-23 15:52] VITALS: PULSE 84
--- NOTE | 2020-03-23 17:00 | P.HPIM ---
History of Present Illness this is combined H&P and discharge summary This is a pleasant 34 years old female with past medical history of asthma, presents because of dyspnea of 2 days' duration, she follows up with her geotechnical operating engineer Dr. Vora.patient presents with dyspnea with 2 days duration associated with some coughing and tenacious phlegm and no chest pain. No other complaints. Patient has been evaluated by geotechnical operating engineer Dr. Schmid who cleared her for discharge on tapered dose of steroids with recommendation to follow up as an outpatient Patient agrees with this recommendation and she feels she can go home. She has mild leukocytosis secondary to steroid effect versus stress patient will be discharged on Taper prednisone Problems and management plan were discussed with the patient and he verbalized understanding and acceptance Patient was found stable and can be discharged home however he needs follow-up as an outpatient. Patient was instructed to follow up with PCPDr. Torres within one week and patient agrees. Also patient was instructed to follow up with her geotechnical operating engineer Dr. Alcira Leung/Dr. Schmid in 1-2 weeks and she agrees to call and make her own appointments Review of systems CONSTITUTIONAL: No fever, no malaise, no fatigue. HEENT: No recent visual problems or hearing problems. Denied any sore throat. CARDIOVASCULAR: No orthopnea, PND, no palpitations, no syncope. PULMONARY: No shortness of breath, no cough, no hemoptysis. GASTROINTESTINAL: No diarrhea, no nausea, no vomiting, no abdominal pain. Normoactive bowel sounds. NEUROLOGICAL: No headaches, no weakness, no numbness. HEMATOLOGICAL: Denies any bleeding or petechiae. GENITOURINARY: Denies any burning micturition, frequency, or urgency. MUSCULOSKELETAL/RHEUMATOLOGICAL: Denies any joint pain, swelling, or any muscle pain. ENDOCRINE: Denies any polyuria or polydipsia. Gen: patient is a AAOx3, no distress CVS: S1-S2, RRR, no murmur Lungs: B/L CTA, very mild scattered wheezing. Very mild tachypnea Abdomen: soft, no distention, no tenderness, positive bowel sounds Extremity: no leg edema or induration Time spent more than 35 minutes Past Medical History Past Medical History: Asthma, Neurologic Disorder Additional Past Medical History / Comment(s): pt states she has " white matter on the brain and white stuff on spinal cord possible ms." History of Any Multi-Drug Resistant Organisms: None Reported Past Surgical History: No Surgical Hx Reported Smoking Status: Current every day smoker - Past Family History Mother Family Medical History: Cancer Additional Family Medical History / Comment(s): breast cancer Father History Unknown: Yes Family Medical History: Coronary Artery Disease (CAD), Hypertension Medications and Allergies Home Medications Medication Instructions Recorded Confirmed Type SUMAtriptan succinate [Imitrex] 50 mg PO TID PRN 10/11/17 03/22/20 History Albuterol Inhaler [Ventolin Hfa 2 puff INHALATION RT-Q4H PRN 03/22/20 03/22/20 History Inhaler] Venlafaxine HCl ER [Effexor Xr] 75 mg PO DAILY@1300 03/22/20 03/22/20 History Allergies Allergy/AdvReac Type Severity Reaction Status Date / Time Penicillins Allergy Swelling Verified 03/22/20 21:45 vancomycin AdvReac Itching Verified 03/22/20 21:45 Physical Exam Vitals: Vital Signs Temp Pulse Pulse Resp BP BP BP 03/23/20 15:51 84 03/23/20 15:38 86 03/23/20 13:32 88 03/23/20 13:23 90 03/23/20 11:43 98.2 F 71 18 117/74 03/23/20 08:49 92 03/23/20 08:37 90 03/23/20 05:28 84 03/23/20 05:18 88 03/23/20 05:15 97.8 F 76 19 114/73 03/23/20 00:29 97.6 F 86 17 117/78 03/22/20 23:00 97.9 F 96 18 100/62 03/22/20 22:19 96 03/22/20 22:09 88 03/22/20 22:08 88 03/22/20 22:01 89 03/22/20 21:22 85 18 119/69 03/22/20 20:42 114 H 03/22/20 20:41 22 03/22/20 20:38 112 H 03/22/20 20:18 97.6 F 119 H 26 H 122/77 Pulse Ox 03/23/20 15:51 03/23/20 15:38 98 03/23/20 13:32 03/23/20 13:23 03/23/20 11:43 97 03/23/20 08:49 03/23/20 08:37 03/23/20 05:28 03/23/20 05:18 03/23/20 05:15 94 L 03/23/20 00:29 95 03/22/20 23:00 98 03/22/20 22:19 03/22/20 22:09 03/22/20 22:08 03/22/20 22:01 03/22/20 21:22 97 03/22/20 20:42 03/22/20 20:41 03/22/20 20:38 03/22/20 20:18 96 Intake and Output 03/23/20 03/23/20 03/23/20 06:59 14:59 22:59 Intake Total 140 Balance 140 Intake: Intake, IV Titration 140 Amount Sodium Chloride 0.9% 1, 140 000 ml @ 20 mls/hr IV . Q24H [facility] Rx#:[id number] Other: Voiding Method Toilet # Voids 1 2 Weight 79.832 kg Results CBC & Chem 7: 03/22/20 21:19 03/22/20 21:19 Labs: Abnormal Lab Results - Last 24 Hours (Table) 03/22/20 03/22/20 03/22/20 Range/Units 21:19 21:19 21:19 WBC 11.2 H (3.8-10.6) k/uL Neutrophils # 8.3 H (1.3-7.7) k/uL Glucose 110 H (74-99) mg/dL Plasma Lactic Acid Raheel 2.1 H* (0.7-2.0) mmol/L 03/23/20 Range/Units 00:58 WBC (3.8-10.6) k/uL Neutrophils # (1.3-7.7) k/uL Glucose (74-99) mg/dL Plasma Lactic Acid Raheel 2.6 H* (0.7-2.0) mmol/L Thrombosis Risk Factor Assmnt - Choose All That Apply Any of the Below Risk Factors Present?: Yes Each Factor Represents 1 point: Serious lung disease incl. pneumonia (< 1month) Other congenital or acquired thrombophilia - If yes, enter type in comment: No Thrombosis Risk Factor Assessment Total Risk Factor Score: 1 Thrombosis Risk Factor Assessment Level: Low Risk
== END 2020-03-23 18:22 | disposition home or self-care (01) ==
LOC: EC 20:03 → 6NMEDSUR 22:05
PROVIDERS: ADMIT Hospitalist; ATTEND Hospitalist
DX: J45.901 Unspecified asthma with (acute) exacerbation (principal); F17.200 Nicotine dependence, unspecified, uncomplicated; Z79.899 Other long term (current) drug therapy; Z80.3 Family history of malignant neoplasm of breast; Z82.49 Family history of ischemic heart disease and other diseases of the circulatory system
CPT/HCPCS: 96361; 96365; 96375; 99285; 36415; 94640 ×3; 93005; 85379; 80053; 83605 ×2; 83735; 84484; 85025; 85610; 85730; 71275; G0378 ×2; J2930; J3475; J7512; Q9967

== ENCOUNTER 2020-03-26 10:54 | Emergency (ER) | payer OTHER ==
[2020-03-26] MEDS ORDERED: IPRATROPIUM-ALBUTEROL 3 ML NEB INHALATION STA (11:09)
--- NOTE | 2020-03-26 11:34 | ED ---
General Adult HPI - General Chief complaint: Shortness of Breath Stated complaint: STAN Time Seen by Provider: 03/26/20 11:02 Source: patient, RN notes reviewed Mode of arrival: ambulatory Limitations: no limitations - History of Present Illness Initial comments: 34-year-old female with a past history of asthma presents to the emergency room for a chief complaint of shortness of breath. Patient reports that about one week ago she started to feel short of breath. This was accompanied by a dry cough. States it felt like an asthma exacerbation. Patient reports that she came to the emergency room, was admitted and was seen by pulmonology and discharged home the next day. Patient states that she has been taking a prednisone taper and using her DuoNeb as directed. She reports that she continues to be short of breath. She had a follow-up appointment with her doctor today who recommended she came back to the ER for a covid test and reevaluation. She denies fevers or chills. Patient has no other complaints at this time including chest pain, abdominal pain, nausea or vomiting, headache, or visual changes. - Related Data Home Medications Medication Instructions Recorded Confirmed SUMAtriptan succinate [Imitrex] 50 mg PO TID PRN 10/11/17 03/26/20 Venlafaxine HCl ER [Effexor XR] 75 mg PO DAILY@1300 03/22/20 03/26/20 predniSONE See Taper PO DAILY 03/26/20 03/26/20 Previous Rx's Medication Instructions Recorded Albuterol Inhaler [Ventolin Hfa 2 puff INHALATION RT-Q4H PRN #1 inh 03/23/20 Inhaler] predniSONE 50 mg PO DAILY #5 tablet 03/26/20 Allergies Allergy/AdvReac Type Severity Reaction Status Date / Time Penicillins Allergy Swelling Verified 03/26/20 11:43 vancomycin AdvReac Itching Verified 03/26/20 11:43 Review of Systems ROS Statement: Those systems with pertinent positive or pertinent negative responses have been documented in the HPI. ROS Other: All systems not noted in ROS Statement are negative. Past Medical History Past Medical History: Asthma, Neurologic Disorder Additional Past Medical History / Comment(s): pt states she has " white matter on the brain and white stuff on spinal cord possible ms." History of Any Multi-Drug Resistant Organisms: None Reported Past Surgical History: No Surgical Hx Reported Past Psychological History: Anxiety Smoking Status: Former smoker Past Alcohol Use History: Occasional Past Drug Use History: None Reported - Past Family History Mother Family Medical History: Cancer Additional Family Medical History / Comment(s): breast cancer Father History Unknown: Yes Family Medical History: Coronary Artery Disease (CAD), Hypertension General Exam Limitations: no limitations General appearance: alert, in no apparent distress Head exam: Present: atraumatic, normocephalic, normal inspection Eye exam: Present: normal appearance, PERRL, EOMI. Absent: scleral icterus, conjunctival injection, periorbital swelling ENT exam: Present: normal exam, mucous membranes moist Neck exam: Present: normal inspection, full ROM. Absent: tenderness, meningismus, lymphadenopathy Respiratory exam: Present: normal lung sounds bilaterally. Absent: respiratory distress, wheezes, rales, rhonchi, stridor Cardiovascular Exam: Present: regular rate, normal rhythm, normal heart sounds. Absent: systolic murmur, diastolic murmur, rubs, gallop, clicks GI/Abdominal exam: Present: soft, normal bowel sounds. Absent: distended, tenderness, guarding, rebound, rigid Neurological exam: Present: alert Course Vital Signs 03/26/20 03/26/20 03/26/20 10:59 11:25 11:48 Temperature 98.7 F Pulse Rate 78 95 Respiratory 20 Rate Blood Pressure 126/80 O2 Sat by Pulse 98 97 Oximetry 03/26/20 03/26/20 11:57 12:12 Temperature 98 F Pulse Rate 91 75 Respiratory 16 Rate Blood Pressure 116/79 O2 Sat by Pulse 98 Oximetry Medical Decision Making - Medical Decision Making Vitals are stable. Patient is afebrile. Patient is 98% on room air. Patient does not have labored breathing while in the emergency room. Chest x-ray shows no acute process. Patient was given a DuoNeb. At this time patient reevaluated. Patient is resting comfortably, no tripoding. No labored breathing. No accessory muscle use. She continues to sat at 98-99% on room a ir. Patient was seen by pulmonology 4 days ago and cleared to follow up in their office. She had a chest CTA at that time which was negative for pulmonary embolism. At this time patient is stable for discharge home, not currently requiring readmission. Patient currently taking 10 mg of prednisone. I will change this to 50 mg of prednisone as patient is not having resolving min of symptoms. Patient will continue breathing treatments and steroids at home. She does have a rescue inhaler. She will return for any worsening symptoms. La virus is pending. Disposition Clinical Impression: Asthma exacerbation Disposition: HOME SELF-CARE Condition: Good Instructions (If sedation given, give patient instructions): Asthma (ED) Additional Instructions: Please continue your breathing treatments at home and continue steroid taper. Follow-up with your doctor in one to 2 days. Return to the emergency room if you have any worsening symptoms. Prescriptions: predniSONE 50 mg PO DAILY #5 tablet Is patient prescribed a controlled substance at d/c from ED?: No Referrals: Lon Torres DO [Primary Care Provider] - 1-2 days Time of Disposition: 12:39
--- NOTE | 2020-03-26 11:59 | XR ---
EXAMINATION TYPE: XR chest 2V DATE OF EXAM: 03/26/2020 COMPARISON: 11/07/2019 INDICATION: Cough, shortness of breath TECHNIQUE: Frontal and lateral views of the chest are obtained. FINDINGS: The heart size is normal. The pulmonary vasculature is normal. The lungs are clear. IMPRESSION: 1. No acute pulmonary process.
[2020-03-26 12:13] VITALS: BP 116/79; PULSE 75; RESP 16; TEMP 98
== END 2020-03-26 12:52 | disposition home or self-care (01) ==
LOC: EC 10:54
DX: J45.901 Unspecified asthma with (acute) exacerbation (principal); F41.9 Anxiety disorder, unspecified; Z79.899 Other long term (current) drug therapy; Z88.1 Allergy status to other antibiotic agents; Z88.0 Allergy status to penicillin; Z87.891 Personal history of nicotine dependence; Z20.828 Contact with and (suspected) exposure to other viral communicable diseases
CPT/HCPCS: 94640; 71046; 99285; U0003

== ENCOUNTER 2020-10-18 11:09 | Emergency (ER) | payer OTHER ==
[2020-10-18 11:15] VITALS: BP 128/79; RESP 18; TEMP 98.2
[2020-10-18] MEDS ORDERED: IPRATROPIUM-ALBUTEROL 3 ML NEB INHALATION STA (11:34)
[2020-10-18 12:07] VITALS: PULSE 98
--- NOTE | 2020-10-18 12:42 | XR ---
EXAMINATION TYPE: XR chest 2V DATE OF EXAM: 10/18/2020 COMPARISON: 03/26/2020 INDICATION: Short of breath, cough TECHNIQUE: Frontal and lateral views the chest are obtained. FINDINGS: The heart size is normal. The pulmonary vasculature is normal. The lungs are clear. IMPRESSION: 1. No acute pulmonary process.
[2020-10-18] MEDS ORDERED: methylPREDNISolone SOD SUCCI 125 MG/2 ML VIAL IM ONE (13:11)
--- NOTE | 2020-10-18 13:13 | ED ---
SOB HPI - General Chief Complaint: Shortness of Breath Stated Complaint: Dizziness/Sweating/SOB Time Seen by Provider: 10/18/20 11:23 Source: patient, RN notes reviewed Mode of arrival: wheelchair Limitations: no limitations - History of Present Illness Initial Comments: 35-year-old female presents emergency department tingling or shortness of breath. Patient states she's been struggling with her asthma last few days. Patient was seen by her credit control manager yesterday was given a shot of steroids, discharge on azithromycin. Patient states she feels like she needs to use her inhaler again. Patient left work. Patient denies any chest pain currently. Patient denies any fevers or chills no history of covid. Patient received her first vaccine 2 weeks ago. - Related Data Home Medications Medication Instructions Recorded Confirmed SUMAtriptan succinate [Imitrex] 50 mg PO TID PRN 10/11/17 10/18/20 ARIPiprazole [Abilify] 5 mg PO HS 10/18/20 10/18/20 Azithromycin [Zithromax] 500 mg PO DAILY 10/18/20 10/18/20 Montelukast Sodium [Singulair] 10 mg PO HS 10/18/20 10/18/20 Venlafaxine HCl ER [Effexor Xr] 150 mg PO HS 10/18/20 10/18/20 predniSONE See Taper PO DIRECTED 10/18/20 10/18/20 Previous Rx's Medication Instructions Recorded Albuterol Inhaler [Ventolin Hfa 2 puff INHALATION RT-Q4H PRN #1 inh 03/23/20 Inhaler] Allergies Allergy/AdvReac Type Severity Reaction Status Date / Time Penicillins Allergy Swelling Verified 10/18/20 12:41 vancomycin AdvReac Itching Verified 10/18/20 12:41 Review of Systems ROS Statement: Those systems with pertinent positive or pertinent negative responses have been documented in the HPI. ROS Other: All systems not noted in ROS Statement are negative. Past Medical History Past Medical History: Asthma, Neurologic Disorder Additional Past Medical History / Comment(s): pt states she has " white matter on the brain and white stuff on spinal cord possible ms." History of Any Multi-Drug Resistant Organisms: None Reported Past Surgical History: No Surgical Hx Reported Past Psychological History: Anxiety Smoking Status: Current some day smoker Past Alcohol Use History: Occasional Past Drug Use History: None Reported - Past Family History Mother Family Medical History: Cancer Additional Family Medical History / Comment(s): breast cancer Father History Unknown: Yes Family Medical History: Coronary Artery Disease (CAD), Hypertension General Exam Limitations: no limitations General appearance: alert, in no apparent distress Head exam: Present: atraumatic, normocephalic, normal inspection Eye exam: Present: normal appearance, PERRL, EOMI. Absent: scleral icterus, conjunctival injection, periorbital swelling ENT exam: Present: normal exam, normal oropharynx, mucous membranes moist Neck exam: Present: normal inspection, full ROM. Absent: tenderness, meningismus, lymphadenopathy Respiratory exam: Present: wheezes. Absent: normal lung sounds bilaterally, respiratory distress, rales, rhonchi, stridor Cardiovascular Exam: Present: regular rate, normal rhythm, normal heart sounds. Absent: systolic murmur, diastolic murmur, rubs, gallop, clicks Course Vital Signs 10/18/20 10/18/20 10/18/20 11:13 11:52 12:07 Temperature 98.2 F Pulse Rate 100 100 98 Respiratory 18 Rate Blood Pressure 128/79 O2 Sat by Pulse 99 Oximetry Medical Decision Making - Medical Decision Making X-ray is unremarkable, patient's Covid test was negative patient was given 2 DuoNeb treatments which has improved her symptoms discharged in stable condition. - Lab Data Lab Results 10/18/20 Range/Units 11:38 Coronavirus (PCR) Not Detected (Not Detectd) Disposition Clinical Impression: Asthma exacerbation Disposition: HOME SELF-CARE Condition: Stable Instructions (If sedation given, give patient instructions): Asthma (ED) Additional Instructions: Please return to the Emergency Department if symptoms worsen or any other concerns. Is patient prescribed a controlled substance at d/c from ED?: No Referrals: Lon Torres DO [Primary Care Provider] - 1-2 days Time of Disposition: 13:13
== END 2020-10-18 13:26 | disposition home or self-care (01) ==
LOC: EC 11:09
DX: J45.901 Unspecified asthma with (acute) exacerbation (principal); F17.200 Nicotine dependence, unspecified, uncomplicated; F41.9 Anxiety disorder, unspecified
CPT/HCPCS: 94640; 87635; 71046; 99284; 96372; J2930

== ENCOUNTER 2020-12-20 17:15 | Emergency (ER) | payer OTHER ==
[2020-12-20 17:20] VITALS: RESP 18; TEMP 97.8
--- NOTE | 2020-12-20 17:31 | ED ---
General Adult HPI - General Chief complaint: Psychiatric Symptoms Stated complaint: EPS eval Time Seen by Provider: 12/20/20 17:21 Source: patient Mode of arrival: ambulatory Limitations: no limitations - History of Present Illness Initial comments: Dictation was produced using [employer] dictation software. please excuse any grammatical, word or spelling errors. Chief Complaint: 35-year-old female sent in by primary care physician for depression evaluation History of Present Illness: Patient is a 35-year-old female she has depression. She was at her primary care physician's office. She was told to come to the emergency department for evaluation. Patient is not suicidal or homicidal. She denies any auditory or visual hallucinations. She's never been admitted to inpatient psych in the past. She presents with mother. Patient was recently started on depression and anxiety medications. She expressed to her primary care doctor that she wouldn't care if she got into an accident and was severely injured. The ROS documented in this emergency department record has been reviewed and confirmed by me. Those systems with pertinent positive or negative responses have been documented in the HPI. All other systems are other negative and/or noncontributory. PHYSICAL EXAM: General Impression: Alert and oriented x3, not in acute distress HEENT: Normocephalic atraumatic, extra-ocular movements intact, pupils equal and reactive to light bilaterally, mucous membranes moist. Cardiovascular: Heart regular rate and rhythm Chest: Able to complete full sentences, no retractions, no tachypnea Abdomen: abdomen soft, non-tender, non-distended, no organomegaly Musculoskeletal: Pulses present and equal in all extremities, no peripheral edema Motor: no focal deficits noted Neurological: CN II-XII grossly intact, no focal motor or sensory deficits noted Skin: Intact with no visualized rashes Psych: Normal affect and mood ED course: 35-year-old feel presents with depression. She was sent in here by primary care doctor for psychiatric evaluation. Vital signs upon arrival are within acceptable limits. Patient does not have any high-risk features she's not showing signs of psychosis. She denies any suicidal or homicidal ideation. She has normal affect. Patient medically cleared for EPS evaluation. Patient was evaluated by EPS recommended discharge with outpatient follow-up. - Related Data Home Medications Medication Instructions Recorded Confirmed SUMAtriptan succinate [Imitrex] 50 mg PO TID PRN 10/11/17 10/18/20 ARIPiprazole [Abilify] 5 mg PO HS 10/18/20 10/18/20 Azithromycin [Zithromax] 500 mg PO DAILY 10/18/20 10/18/20 Montelukast Sodium [Singulair] 10 mg PO HS 10/18/20 10/18/20 Venlafaxine HCl ER [Effexor Xr] 150 mg PO HS 10/18/20 10/18/20 predniSONE See Taper PO DIRECTED 10/18/20 10/18/20 Previous Rx's Medication Instructions Recorded Albuterol Inhaler [Ventolin Hfa 2 puff INHALATION RT-Q4H PRN #1 inh 03/23/20 Inhaler] Allergies Allergy/AdvReac Type Severity Reaction Status Date / Time Penicillins Allergy Swelling Verified 12/20/20 17:19 vancomycin AdvReac Itching Verified 12/20/20 17:19 Review of Systems ROS Statement: Those systems with pertinent positive or pertinent negative responses have been documented in the HPI. ROS Other: All systems not noted in ROS Statement are negative. Past Medical History Past Medical History: Asthma, Neurologic Disorder Additional Past Medical History / Comment(s): pt states she has " white matter on the brain and white stuff on spinal cord possible ms." History of Any Multi-Drug Resistant Organisms: None Reported Past Surgical History: No Surgical Hx Reported Past Psychological History: Anxiety, Depression Smoking Status: Current every day smoker Past Alcohol Use History: Occasional Past Drug Use History: None Reported - Past Family History Mother Family Medical History: Cancer Additional Family Medical History / Comment(s): breast cancer Father History Unknown: Yes Family Medical History: Coronary Artery Disease (CAD), Hypertension General Exam Limitations: no limitations Course Vital Signs 12/20/20 17:17 Temperature 97.8 F Pulse Rate 101 H Respiratory 18 Rate Blood Pressure 126/87 O2 Sat by Pulse 98 Oximetry Disposition Clinical Impression: Depression Disposition: HOME SELF-CARE Condition: Good Instructions (If sedation given, give patient instructions): Depression (ED) Is patient prescribed a controlled substance at d/c from ED?: No Referrals: Lon Torres DO [Primary Care Provider] - 1-2 days
[2020-12-20] MEDS ORDERED: LORazepam 1 MG TAB PO STA (19:05)
[2020-12-20 19:30] VITALS: BP 109/82; PULSE 84
[2020-12-21 05:15] LABS: Urine Alcohol Negative (Negative); Urine Barbiturate Negative (Negative); Urine Cocaine Negative (Negative); Urine Methadone Negative (Negative); Urine Opiates Negative (Negative); Urine Phencyclidine Negative (Negative)
== END 2020-12-20 19:30 | disposition home or self-care (01) ==
LOC: EC 17:15
DX: F32.9 Major depressive disorder, single episode, unspecified (principal); F41.9 Anxiety disorder, unspecified; J45.909 Unspecified asthma, uncomplicated; F17.200 Nicotine dependence, unspecified, uncomplicated; Z79.52 Long term (current) use of systemic steroids; Z79.899 Other long term (current) drug therapy; Z88.0 Allergy status to penicillin; Z88.1 Allergy status to other antibiotic agents
CPT/HCPCS: 80306; 82075; 99284

== ENCOUNTER → 2021-06-05 | Outpatient (CLI) | payer OTHER | END | disposition home or self-care (01) | LOC: LABWHC1 12:25 | PROVIDERS: ATTEND Family Medicine | DX: Z20.822 Contact with and (suspected) exposure to COVID-19 (principal) | CPT/HCPCS: U0003; C9803; U0005 ==

== ENCOUNTER 2022-09-07 15:20 | Emergency (ER) | payer OTHER ==
[2022-09-07 15:25] VITALS: BP 140/89; PULSE 94; RESP 18; TEMP 98.7
[2022-09-07 15:59] LABS: Appearance,Urine Clear (Clear); Bilirubin,Urine Negative (Negative); Blood,Urine Negative (Negative); Color,Urine Light Yellow; Glucose,Urine (UA) Negative (Negative); Ketones,Urine Negative (Negative); Leukocyte Esterase,Urine Negative (Negative); Nitrite,Urine Negative (Negative); PH, Urine 7.5 (5.0-8.0); Protein,Urine Negative (Negative); Urobilinogen,Urine <2.0 mg/dL (<2.0)
--- NOTE | 2022-09-07 16:25 | ED ---
Abdominal Pain HPI - General Chief Complaint: Abdominal Pain Stated Complaint: abd pain Time Seen by Provider: 09/07/22 15:28 Source: patient Mode of arrival: ambulatory Limitations: no limitations - History of Present Illness Initial Comments: Patient is a 37-year-old female presenting with chief complaint of pelvic cramping. Patient states crampy has been going on for a few days. She also admits to some lower back cramping. She admits to nausea with no vomiting. Patient states that yesterday she had some clear vaginal discharge and some b lood streaking afterwards, no vaginal discharge or bleeding today. Her LMP was 08/05. She is a . She took a test 2 days ago which was negative. She is having no upper abdominal pain. No diarrhea. No fevers or chills. Patient is not concerned for any STDs. No chest pain or difficulty breathing. - Related Data Home Medications Medication Instructions Recorded Confirmed SUMAtriptan succinate [Imitrex] 50 mg PO TID PRN 10/11/17 09/07/22 Venlafaxine HCl ER [Effexor Xr] 150 mg PO DAILY 10/18/20 09/07/22 Topiramate [Topamax] 50 mg PO BID 09/07/22 09/07/22 Venlafaxine HCl ER [Effexor Xr] 75 mg PO DAILY 09/07/22 09/07/22 Ziprasidone [Geodon] 40 mg PO BID 09/07/22 09/07/22 buPROPion HCL [buPROPion HCL SR] 200 mg PO DAILY 09/07/22 09/07/22 Previous Rx's Medication Instructions Recorded Albuterol Inhaler [Ventolin Hfa 2 puff INHALATION RT-Q4H PRN #1 inh 03/23/20 Inhaler] Allergies Allergy/AdvReac Type Severity Reaction Status Date / Time Penicillins Allergy Swelling Verified 09/07/22 16:13 vancomycin AdvReac Itching Verified 09/07/22 16:13 Review of Systems ROS Statement: Those systems with pertinent positive or pertinent negative responses have been documented in the HPI. ROS Other: All systems not noted in ROS Statement are negative. Past Medical History Past Medical History: Asthma, Neurologic Disorder Additional Past Medical History / Comment(s): pt states she has " white matter on the brain and white stuff on spinal cord possible ms." History of Any Multi-Drug Resistant Organisms: None Reported Past Surgical History: No Surgical Hx Reported Past Psychological History: Anxiety, Depression Smoking Status: Current every day smoker Past Alcohol Use History: Occasional Past Drug Use History: None Reported - Past Family History Mother Family Medical History: Cancer Additional Family Medical History / Comment(s): breast cancer Father History Unknown: Yes Family Medical History: Coronary Artery Disease (CAD), Hypertension General Exam Limitations: no limitations General appearance: alert, in no apparent distress Head exam: Present: atraumatic, normocephalic, normal inspection Eye exam: Present: normal appearance Neck exam: Present: normal inspection, full ROM Respiratory exam: Present: normal lung sounds bilaterally. Absent: respiratory distress, wheezes, rales, rhonchi, stridor Cardiovascular Exam: Present: regular rate, normal rhythm, normal heart sounds. Absent: systolic murmur, diastolic murmur, rubs, gallop, clicks GI/Abdominal exam: Present: soft. Absent: distended, tenderness, guarding, rebound, rigid External exam: Present: normal external exam Speculum exam: Present: normal speculum exam By manual exam: Present: normal by manual exam Back exam: Absent: CVA tenderness (R), CVA tenderness (L) Neurological exam: Present: alert, oriented X3, CN II-XII intact Psychiatric exam: Present: normal affect, normal mood Skin exam: Present: warm, dry, intact, normal color. Absent: rash Course Vital Signs 09/07/22 15:22 Temperature 98.7 F Pulse Rate 94 Respiratory 18 Rate Blood Pressure 140/89 O2 Sat by Pulse 99 Oximetry Medical Decision Making - Medical Decision Making Was pt. sent in by a medical professional or institution (, PA, BASE CLOTH INSPECTOR, urgent care, hospital, or chcf...) When possible be specific @ -No Did you speak to anyone other than the patient for history (EMS, parent, family, police, friend...)? What history was obtained from this source @ -No Did you review nursing and triage notes (agree or disagree)? Why? @ -I reviewed and agree with nursing and triage notes Were old charts reviewed (outside hosp., previous admission, EMS record, old EKG, old radiological studies, urgent care reports/EKG's, chcf records)? Report findings @ -No old charts were reviewed Differential Diagnosis (chest pain, altered mental status, abdominal pain women, abdominal pain men, vaginal bleeding, weakness, fever, dyspnea, syncope, headache, dizziness, GI bleed, back pain, seizure, CVA, palpatations, mental health, musculoskeletal)? @ -Differential includes , perimenopause, STI, PID, UTI, this is not an all inclusive list EKG interpreted by me (3pts min.). @ -As above X-rays interpreted by me (1pt min.). @ -None done CT interpreted by me (1pt min.). @ -None done U/S interpreted by me (1pt. min.). @ -None done What testing was considered but not performed or refused? (CT, X-rays, U/S, lab s)? Why? @ -None What meds were considered but not given or refused? Why? @ -None Did you discuss the management of the patient with other professionals (professionals i.e. , PA, BASE CLOTH INSPECTOR, lab, RT, psych nurse, manager social services, talent acquisition assistant, teacher, deck officer, project manager senior)? Give summary @ -No Was smoking cessation discussed for >3mins.? @ -No Was critical care preformed (if so, how long)? @ -No Were there social determinants of health that impacted care today? How? (Homelessness, low income, unemployed, alcoholism, drug addiction, transportation, low edu. Level, literacy, decrease access to med. care, shelter, rehab)? @ -No Was there de-escalation of care discussed even if they declined (Discuss DNR or withdrawal of care, Hospice)? DNR status @ -No What co-morbidities impacted this encounter? (DM, HTN, Smoking, COPD, CAD, Cancer, CVA, ARF, Chemo, Hep., AIDS, mental health diagnosis, sleep apnea, morbid obesity)? @ -None Was patient admitted / discharged? Hospital course, mention meds given and route, prescriptions, significant lab abnormalities, going to OR and other pertinent info. @ -Patient is a 37-year-old female presenting with chief complaint of pelvic cramping. LMP is 2. On physical examination abdomen is soft, nontender, nondistended and negative CVA tenderness. Urine shows no sign of bleeding or infection. HCG is negative. Speculum and bimanual exam are WNL. Genital swabs are sent out. Patient is instructed to follow-up with her PCP and LICENSED OCCUPATIONAL THERAPY ASSISTANT. Follow-up with PCP. Report back to ER with any new or worsening symptoms. Discussed return parameters and answered all questions. Patient conveyed verbal understanding and agreed to the plan. I discussed this case in detail with my attending Dr. Cantrell Undiagnosed new problem with uncertain prognosis? @ -No Drug Therapy requiring intensive monitoring for toxicity (Heparin, Nitro, Insulin, Cardizem)? @ -No Were any procedures done? @ -No Diagnosis/symptom? @ -Pelvic cramping Acute, or Chronic, or Acute on Chronic? @ -Acute Uncomplicated (without systemic symptoms) or Complicated (systemic symptoms)? @ -Uncomplicated Side effects of treatment? @ -No Exacerbation, Progression, or Severe Exacerbation? @ -No Poses a threat to life or bodily function? How? (Chest pain, USA, AR, pneumonia, PE, COPD, DKA, ARF, appy, cholecystitis, CVA, Diverticulitis, Homicidal, Suicidal, threat to staff... and all critical care pts) @ -No - Lab Data Lab Results 09/07/22 09/07/22 Range/Units 15:44 15:44 Urine Color Light Yellow Urine Appearance Clear (Clear) Urine pH 7.5 (5.0-8.0) Ur Specific [place] 1.010 (1.001-1.035) Urine Protein Negative (Negative) Urine Glucose (UA) Negative (Negative) Urine Ketones Negative (Negative) Urine Blood Negative (Negative) Urine Nitrite Negative (Negative) Urine Bilirubin Negative (Negative) Urine Urobilinogen <2.0 (<2.0) mg/dL Ur Leukocyte Esterase Negative (Negative) Urine HCG, Qual Not Detected (Not Detectd) Disposition Clinical Impression: Pelvic cramping Disposition: HOME SELF-CARE Condition: Good Instructions (If sedation given, give patient instructions): Pelvic Pain in Women (ED) Additional Instructions: Follow-up with PCP and LICENSED OCCUPATIONAL THERAPY ASSISTANT. Report back to ER with any new or worsening symptoms. Take Motrin and Tylenol as needed for pain control. Is patient prescribed a controlled substance at d/c from ED?: No Referrals: Lon Torres DO [Primary Care Provider] - 1-2 days Maddison Yusuf DO [Doctor of Osteopathic Medicine] - 1-2 days Time of Disposition: 16:25
== END 2022-09-07 17:17 | disposition home or self-care (01) ==
LOC: EC 15:20
DX: R10.2 Pelvic and perineal pain (principal); J45.909 Unspecified asthma, uncomplicated; F32.A Depression, unspecified; F41.9 Anxiety disorder, unspecified; F17.200 Nicotine dependence, unspecified, uncomplicated; Z79.899 Other long term (current) drug therapy; Z88.0 Allergy status to penicillin; Z88.1 Allergy status to other antibiotic agents
CPT/HCPCS: 81003; 81025; 87070; 87491; 87808; 99284

== ENCOUNTER 2023-04-05 13:51 | Emergency (ER) | payer BC, OTHER ==
--- NOTE | 2023-04-05 15:31 | ED ---
General Adult HPI - General Chief complaint: Recheck/Abnormal Lab/Rx Stated complaint: 8 weeks preg, withdrawls Time Seen by Provider: 04/05/23 14:50 Source: patient Mode of arrival: ambulatory Limitations: no limitations - History of Present Illness Initial comments: 38-year-old A0 LMP 02/09/23 resents to the ED with the chief complaints of withdrawal. She states approximately a week and a half ago was hospitalized due to withdrawal symptoms. States that she was previously on venlafaxine 225 mg which she abruptly discontinued. Was admitted at this time due to severity of withdrawal symptoms and discharged home with venlafaxine 75 mg which she was instructed to slowly taper off. Patient previously on venlafaxine 75 mg. States that she has been off of this last 3 days and now notes she has complaints of generalized fatigue, shakiness, and feeling "out of it". Associated nausea and diarrhea. No abdominal pain. No vaginal bleeding or vaginal discharge. No chest pain shortness of breath. No other complaints. - Related Data Home Medications Medication Instructions Recorded Confirmed SUMAtriptan succinate [Imitrex] 50 mg PO TID PRN 10/11/17 09/07/22 Venlafaxine HCl ER [Effexor Xr] 150 mg PO DAILY 10/18/20 09/07/22 Topiramate [Topamax] 50 mg PO BID 09/07/22 09/07/22 Venlafaxine HCl ER [Effexor Xr] 75 mg PO DAILY 09/07/22 09/07/22 Ziprasidone [Geodon] 40 mg PO BID 09/07/22 09/07/22 buPROPion HCL [buPROPion HCL SR] 200 mg PO DAILY 09/07/22 09/07/22 Previous Rx's Medication Instructions Recorded Albuterol Inhaler [Ventolin Hfa 2 puff INHALATION RT-Q4H PRN #1 inh 03/23/20 Inhaler] Allergies Allergy/AdvReac Type Severity Reaction Status Date / Time Penicillins Allergy Swelling Verified 04/05/23 14:08 vancomycin AdvReac Itching Verified 04/05/23 14:08 Review of Systems ROS Statement: Those systems with pertinent positive or pertinent negative responses have been documented in the HPI. ROS Other: All systems not noted in ROS Statement are negative. Past Medical History Past Medical History: Asthma, Neurologic Disorder Additional Past Medical History / Comment(s): pt states she has " white matter on the brain and white stuff on spinal cord possible ms." History of Any Multi-Drug Resistant Organisms: None Reported Past Surgical History: No Surgical Hx Reported Past Psychological History: Anxiety, Depression Smoking Status: Current every day smoker Past Alcohol Use History: Occasional Past Drug Use History: None Reported - Past Family History Mother Family Medical History: Cancer Additional Family Medical History / Comment(s): breast cancer Father History Unknown: Yes Family Medical History: Coronary Artery Disease (CAD), Hypertension General Exam Limitations: no limitations General appearance: alert, in no apparent distress ENT exam: Present: mucous membranes moist Neck exam: Present: normal inspection Respiratory exam: Present: normal lung sounds bilaterally Cardiovascular Exam: Present: regular rate, normal rhythm GI/Abdominal exam: Present: soft (No Tenderness to palpation. No rebound guarding or rigidity.) Extremities exam: Present: other (Strength and Sensation equal and intact in bilateral upper and lower extremity.) Neurological exam: Present: alert, oriented X3, CN II-XII intact (Finger-nose, rapid alternate hand movements, [id number] intact.) Skin exam: Present: warm, dry Course Vital Signs 04/05/23 04/05/23 14:08 17:20 Temperature 97.6 F Pulse Rate 94 80 Respiratory 16 18 Rate Blood Pressure 140/91 122/79 O2 Sat by Pulse 99 100 Oximetry Medical Decision Making - Medical Decision Making Was pt. sent in by a medical professional or institution (, PA, ARTS ADMINISTRATOR, urgent care, hospital, or chcf...) When possible be specific @ -No Did you speak to anyone other than the patient for history (EMS, parent, family, police, friend...)? What history was obtained from this source @ -No Did you review nursing and triage notes (agree or disagree)? Why? @ -I reviewed and agree with nursing and triage notes Were old charts reviewed (outside hosp., previous admission, EMS record, old EKG, old radiological studies, urgent care reports/EKG's, chcf records)? Report findings @ -No old charts were reviewed Differential Diagnosis (chest pain, altered mental status, abdominal pain women, abdominal pain men, vaginal bleeding, weakness, fever, dyspnea, syncope, headache, dizziness, GI bleed, back pain, seizure, CVA, palpatations, mental health, musculoskeletal)? @ -not applicable EKG interpreted by me (3pts min.). @ -None X-rays interpreted by me (1pt min.). @ -None done CT interpreted by me (1pt min.). @ -None done U/S interpreted by me (1pt. min.). @ -None done What testing was considered but not performed or refused? (CT, X-rays, U/S, labs)? Why? @ -None What meds were considered but not given or refused? Why? @ -None Did you discuss the management of the patient with other professionals (professionals i.e. DrAlejandro, PA, ARTS ADMINISTRATOR, lab, RT, psych nurse, social worker school, director life sciences, teacher, pharmaceutical officer, lead case manager)? Give summary @ -No Was smoking cessation discussed for >3mins.? @ -No Was critical care preformed (if so, how long)? @ -No Were there social determinants of health that impacted care today? How? (Homelessness, low income, unemployed, alcoholism, drug addiction, transportation, low edu. Level, literacy, decrease access to med. care, retirement, rehab)? @ -No Was there de-escalation of care discussed even if they declined (Discuss DNR or withdrawal of care, Hospice)? DNR status @ -No What co-morbidities impacted this encounter? (DM, HTN, Smoking, COPD, CAD, Cancer, CVA, ARF, Chemo, Hep., AIDS, mental health diagnosis, sleep apnea, morbid obesity)? @ - Was patient admitted / discharged? Hospital course, mention meds given and route, prescriptions, significant lab abnormalities, going to OR and other pertinent info. @ -Discharge 38-year-old female approximately weeks presenting to the ED with chief complaint of venlafaxine withdrawal symptoms. She had significant improvement of symptoms in the ED with saline and Reglan. Laboratory studies including CBC, CMP, UA largely unremarkable. At this time, patient stable for discharge. Vital signs stable afebrile. Discharged home in stable condition. Discussed return precautions patient verbalizes agreement. Undiagnosed new problem with uncertain prognosis? @ -No Drug Therapy requiring intensive monitoring for toxicity (Heparin, Nitro, Insulin, Cardizem)? @ -No Were any procedures done? @ -No Diagnosis/symptom? @ -Venlafaxine withdrawal Acute, or Chronic, or Acute on Chronic? @ -Acute Uncomplicated (without systemic symptoms) or Complicated (systemic symptoms)? @ -Uncomplicated Side effects of treatment? @ -No Exacerbation, Progression, or Severe Exacerbation? @ -No Poses a threat to life or bodily function? How? (Chest pain, USA, CT, pneumonia, PE, COPD, DKA, ARF, appy, cholecystitis, CVA, Diverticulitis, Homicidal, Suicidal, threat to staff... and all critical care pts) @ -No - Lab Data Result diagrams: 04/05/23 16:09 04/05/23 16:09 Lab Results 04/05/23 04/05/23 04/05/23 Range/Units 16:09 16:09 16:27 WBC 16.8 H (3.8-10.6) k/uL RBC 4.92 (3.80-5.40) m/uL Hgb 14.4 (11.4-16.0) gm/dL Hct 44.4 (34.0-46.0) % MCV 90.3 (80.0-100.0) fL MCH 29.3 (25.0-35.0) pg MCHC 32.5 (31.0-37.0) g/dL RDW 13.7 (11.5-15.5) % Plt Count 273 (150-450) k/uL MPV 9.1 Neutrophils % 78 % Lymphocytes % 14 % Monocytes % 6 % Eosinophils % 1 % Basophils % 0 % Neutrophils # 13.1 H (1.3-7.7) k/uL Lymphocytes # 2.4 (1.0-4.8) k/uL Monocytes # 1.0 (0-1.0) k/uL Eosinophils # 0.1 (0-0.7) k/uL Basophils # 0.0 (0-0.2) k/uL Sodium 139 (137-145) mmol/L Potassium 4.6 (3.5-5.1) mmol/L Chloride 105 (98-107) mmol/L Carbon Dioxide 20 L (22-30) mmol/L Anion Gap 14 mmol/L BUN 6 L (7-17) mg/dL Creatinine 0.47 L (0.52-1.04) mg/dL Est GFR (CKD-EPI)AfAm >90 (>60 ml/min/1.73 sqM) Est GFR (CKD-EPI)NonAf >90 (>60 ml/min/1.73 sqM) Glucose 82 (74-99) mg/dL Calcium 10.1 (8.4-10.2) mg/dL Total Bilirubin 0.6 (0.2-1.3) mg/dL AST 31 (14-36) U/L ALT 19 (4-34) U/L Alkaline Phosphatase 62 (38-126) U/L Total Protein 8.1 (6.3-8.2) g/dL Albumin 4.9 (3.5-5.0) g/dL Urine Color Yellow Urine Appearance Slightly Cloudy H (Clear) Urine pH 7.5 (5.0-8.0) Ur Specific [place] 1.010 (1.001-1.035) Urine Protein Negative (Negative) Urine Glucose (UA) Negative (Negative) Urine Ketones Negative (Negative) Urine Blood Negative (Negative) Urine Nitrite Negative (Negative) Urine Bilirubin Negative (Negative) Urine Urobilinogen 1.0 (<2.0) mg/dL Ur Leukocyte Esterase Large (Negative) Urine RBC 1 (0-5) /hpf Urine WBC 20 H (0-5) /hpf Ur Squamous Epith Cells 9 H (0-4) /hpf Urine Bacteria Rare H (None) /hpf Urine Mucus Rare H (None) /hpf Disposition Clinical Impression: Medication withdrawal Disposition: HOME SELF-CARE Condition: Good Additional Instructions: Please return to the Emergency Department if symptoms worsen or any other concerns. Please follow-up with your PCP/PRESS SUPERVISOR. Is patient prescribed a controlled substance at d/c from ED?: No Referrals: Lon Torres DO [Primary Care Provider] - 1-2 days Time of Disposition: 18:03
[2023-04-05] MEDS ORDERED: ACETAMINOPHEN TAB 500 MG TAB PO STA (15:43)
[2023-04-05] MEDS ORDERED: SODIUM CHLORIDE 0.9% 1,000 ML IV STA (15:43)
[2023-04-05] MEDS ORDERED: METOCLOPRAMIDE 5 MG/ML 2 ML VIAL IVP STA (15:45)
[2023-04-05 16:35] LABS: Basophils % (A) 0 %; Eosinophils # (A) 0.1 k/uL (0-0.7); Eosinophils % (A) 1 %; HCT 44.4 % (34.0-46.0); HGB 14.4 gm/dL (11.4-16.0); Lymphocytes # (A) 2.4 k/uL (1.0-4.8); Lymphocytes % (A) 14 %; MCH 29.3 pg (25.0-35.0); MCHC 32.5 g/dL (31.0-37.0); MCV 90.3 fL (80.0-100.0); Mean Platelet Volume 9.1; Monocytes % (A) 6 %; Neutrophils # (A) 13.1 k/uL (1.3-7.7); Neutrophils % (A) 78 %; Platelet Count 273 k/uL (150-450); RBC 4.92 m/uL (3.80-5.40); RDW 13.7 % (11.5-15.5); WBC 16.8 k/uL (3.8-10.6)
[2023-04-05 16:38] LABS: ALT 19 U/L (4-34); African American GFR (CKD) >90 (>60 ml/min/1.73 sqM); Albumin 4.9 g/dL (3.5-5.0); Anion Gap 14 mmol/L; Blood Urea Nitrogen 6 mg/dL (7-17); Calcium 10.1 mg/dL (8.4-10.2); Carbon Dioxide 20 mmol/L (22-30); Chloride 105 mmol/L (98-107); Glucose 82 mg/dL (74-99); Non-African American GFR(CKD) >90 (>60 ml/min/1.73 sqM); Sodium 139 mmol/L (137-145); Total Bilirubin 0.6 mg/dL (0.2-1.3); Total Protein 8.1 g/dL (6.3-8.2)
[2023-04-05 16:49] LABS: AST 31 U/L (14-36); Potassium 4.6 mmol/L (3.5-5.1)
[2023-04-05 16:50] LABS: Alkaline Phosphatase 62 U/L (38-126)
[2023-04-05 17:33] VITALS: RESP 18
[2023-04-05 17:56] LABS: Bacteria,Urine Rare /hpf; Mucus,Urine Rare /hpf; RBC,Urine 1 /hpf (0-5); Squamous Epithelial Cell,Urine 9 /hpf (0-4); WBC,Urine 20 /hpf (0-5)
[2023-04-05 18:01] LABS: Appearance,Urine Slightly Cloudy (Clear); Color,Urine Yellow; Glucose,Urine (UA) Negative (Negative); PH, Urine 7.5 (5.0-8.0); Protein,Urine Negative (Negative)
[2023-04-05 18:02] LABS: Bilirubin,Urine Negative (Negative); Blood,Urine Negative (Negative); Ketones,Urine Negative (Negative); Leukocyte Esterase,Urine Large (Negative); Nitrite,Urine Negative (Negative)
[2023-04-05 18:46] VITALS: BP 109/71; PULSE 82; TEMP 98.2
== END 2023-04-05 18:42 | disposition home or self-care (01) ==
LOC: EC 13:51
DX: O26.891 Other specified pregnancy related conditions, first trimester (principal); F19.239 Other psychoactive substance dependence with withdrawal, unspecified; O99.511 Diseases of the respiratory system complicating pregnancy, first trimester; J45.909 Unspecified asthma, uncomplicated; O99.341 Other mental disorders complicating pregnancy, first trimester; F41.9 Anxiety disorder, unspecified; F32.A Depression, unspecified; O99.321 Drug use complicating pregnancy, first trimester; F17.200 Nicotine dependence, unspecified, uncomplicated; Z79.899 Other long term (current) drug therapy; Z88.0 Allergy status to penicillin; Z88.8 Allergy status to other drugs, medicaments and biological substances; Z88.1 Allergy status to other antibiotic agents
CPT/HCPCS: 36415; 80053; 85025; 81001; 99283; 96374; 96361; J2765

== ENCOUNTER 2023-04-14 16:10 | Day surgery (SDC) | payer BC, OTHER ==
[~2023-04-14 16:10] MED LIST: Pre Op ABX Message 1 EACH MISC MISCELLANE ONE
[2023-04-14] MEDS ORDERED: LACTATED RINGERS 1,000 ML IV ONE ×2 (16:36→17:30)
[2023-04-14] MEDS ORDERED: LIDOCAINE 1% (10MG/ML) FOR IV START INTRADERMA ONE (16:36)
[2023-04-14 16:45] VITALS: RESP 16; TEMP 96.9
[2023-04-14] MEDS ORDERED: ONDANSETRON 4 MG/2 ML VIAL ONE (16:45)
[2023-04-14] MEDS ORDERED: ONDANSETRON 4 MG/2 ML VIAL IVP ONE (16:46)
[2023-04-14 16:47] LABS: Basophils % (A) 0 %; Eosinophils # (A) 0.1 k/uL (0-0.7); Eosinophils % (A) 1 %; HCT 38.7 % (34.0-46.0); HGB 12.9 gm/dL (11.4-16.0); Lymphocytes # (A) 1.8 k/uL (1.0-4.8); Lymphocytes % (A) 17 %; MCH 30.5 pg (25.0-35.0); MCHC 33.4 g/dL (31.0-37.0); MCV 91.4 fL (80.0-100.0); Mean Platelet Volume 7.2; Monocytes # (A) 0.5 k/uL (0-1.0); Monocytes % (A) 5 %; Neutrophils % (A) 76 %; Platelet Count 276 k/uL (150-450); RBC 4.24 m/uL (3.80-5.40); RDW 14.4 % (11.5-15.5); WBC 10.6 k/uL (3.8-10.6)
[2023-04-14] MEDS ORDERED: DEXAMETHASONE SOD PHOSPHATE 4 MG/ML 1 ML VIAL IV ONE (16:47)
[2023-04-14] MEDS ORDERED: KETOROLAC 15 MG/ML 1 ML VIAL ONE (16:59)
[2023-04-14] MEDS ORDERED: fentaNYL (PF) 50 MCG/ML 2 ML AMP ONE (16:59)
[2023-04-14] MEDS ORDERED: LIDOCAINE 1% INJ 10MG/ML (20 ML MDV) ONE (16:59)
[2023-04-14] MEDS ORDERED: MIDAZOLAM 2 MG/2 ML VIAL ONE (16:59)
[2023-04-14] MEDS ORDERED: PROPOFOL 10 MG/ML 20 ML VIAL IV ONE (16:59)
[2023-04-14] MEDS ORDERED: METOCLOPRAMIDE 5 MG/ML 2 ML VIAL IVP PRN (17:35)
[2023-04-14] MEDS ORDERED: IBUPROFEN 600 MG TAB PO PRN (17:35)
[2023-04-14] MEDS ORDERED: Acetaminophen-Codeine 300-30mg TAB PO PRN ×2 (17:35)
[2023-04-14] MEDS ORDERED: SIMETHICONE 80 MG CHEWABLE PO PRN (17:35)
[2023-04-14] MEDS ORDERED: diphenhydrAMINE 50 MG/ML 1 ML VIAL IVP PRN (17:35)
[2023-04-14] MEDS ORDERED: ONDANSETRON 4 MG/2 ML VIAL IVP PRN (17:35)
[2023-04-14] MEDS ORDERED: KETOROLAC 15 MG/ML 1 ML VIAL IVP PRN (17:35)
--- NOTE | 2023-04-14 17:41 | P.OP ---
Date of Procedure: 04/14/23 Preoperative Diagnosis: #1. Six-week missed Postoperative Diagnosis: Same Procedure(s) Performed: #1. Dilation and aspiration curettage Anesthesia: other (Gen. by LMA) Surgeon: Mike Bhardwaj Estimated Blood Loss (ml): 25 IV fluids (ml): 700 Urine output (ml): 5 Pathology: other (Endometrial contents/products of conception) Condition: stable Disposition: PACU Operative Findings: A pelvic examination demonstrated roughly 6 week anteverted mobile normal shaped uterus with normal adnexa bilaterally. Intraoperatively, the uterus sounded to approximately 10 cm. A #8 curved aspiration curet was utilized and tissues c learly seen passing through the tubing on the first pass. Any further passes demonstrated no further passage of tissue. A medium sharp curette was introduced and the typical gritty texture was encountered throughout. The uterine cavity was significantly smaller in size from the beginning of the case to the end. Description of Procedure: The patient was prepped and draped in usual fashion after general anesthesia was administered by the anesthesiologist. A weighted speculum was placed in the bladder draining approximate 5 mL of very concentrated clear mikel to dark mikel urine. The anterior lip of the cervix was grasped with a single-tooth tenaculum and the uterus sounded to approximately 10 cm as noted above. Serial dilation was carried out to admit a #8 curved aspiration curet which was placed to the fundus and suction applied. After adequate suction had been built, thorough and circumferential aspiration curettage was carried out from the fundus to the cervix with tissue clearly seen passing through the tubing throughout the first pass. A second pass was made at which time no further tissue was noted. The uterus was significantly smaller in size. The aspiration curet was set aside in favor of a medium sharp curet which was utilized to thoroughly and circumferentially perform sharp curettage in a circumferential fashion with the typical gritty texture noted throughout and no tissue produced. One last pass was made with the aspiration curet which time no further tissue was noted. All instrumentation was removed. There was some ongoing bleeding from both points of the tenaculum which were made hemostatic with pressure. There was no ongoing bleeding from the cervix itself. Estimated blood loss for the case was approximately 25 mL. There were no complications. All sponge, instrument, and needle counts were correct. The patient tolerated the procedure well and proceeded to the recovery room in stable condition.
[2023-04-14] MEDS ORDERED: LACTATED RINGERS 1,000 ML IV SCH (17:45)
[2023-04-14 18:41] VITALS: BP 110/76; PULSE 95
[2023-04-15] MEDS ORDERED: ACETAMINOPHEN TAB 325 MG TAB PO PRN (17:36)
== END 2023-04-14 18:45 | disposition home or self-care (01) ==
LOC: OR 16:10
PROVIDERS: ATTEND Obstetrics & Gynecology
DX: O02.1 Missed abortion (principal)
CPT/HCPCS: 86900; 86901; 85025; 86850; 59820; J2250; J1100; J2405; J2001; J3010; J1885; J2704

== ENCOUNTER → 2023-05-07 | Outpatient (CLI) | payer BC, OTHER | END | disposition home or self-care (01) | LOC: LABWHC1 13:12 | PROVIDERS: ATTEND Obstetrics & Gynecology | DX: O03.9 Complete or unspecified spontaneous abortion without complication (principal); Z3A.00 Weeks of gestation of pregnancy not specified | CPT/HCPCS: 36415; 84702 ==